=== PATIENT | male | born 1935 | race Caucasian/White ===

== ENCOUNTER → 2019-07-09 12:17 | Outpatient (BNVA) | payer MEDICARE, OTHER, SELFPAY | PROVIDERS: PCP Family Medicine; Visit Provider Family Medicine | DX: Z00.00 Encounter for general adult medical examination without abnormal findings (principal); E11.9 Type 2 diabetes mellitus without complications; Z12.5 Encounter for screening for malignant neoplasm of prostate | CPT/HCPCS: 80053; 80061; 83036; 85025; G0103 ==

== ENCOUNTER → 2019-09-17 15:21 | Outpatient (BNVA) | payer MEDICARE, OTHER, SELFPAY | PROVIDERS: PCP Family Medicine; Visit Provider Nurse Practitioner Family | DX: D69.2 Other nonthrombocytopenic purpura (principal); R21 Rash and other nonspecific skin eruption | CPT/HCPCS: 80053; 85025; 85651; 86140 ==

== ENCOUNTER → 2019-09-23 16:20 | Outpatient (BNVA) | payer MEDICARE, OTHER, SELFPAY | PROVIDERS: PCP Family Medicine; Visit Provider Family Medicine | DX: R23.3 Spontaneous ecchymoses (principal) | CPT/HCPCS: 82270 ==

== ENCOUNTER → 2019-10-21 12:51 | Outpatient (BNVA) | payer MEDICARE, OTHER, SELFPAY | PROVIDERS: PCP Family Medicine; Visit Provider Family Medicine | DX: E11.9 Type 2 diabetes mellitus without complications (principal) | CPT/HCPCS: 80053; 80061; 83036; 85025 ==

== ENCOUNTER → 2020-01-22 08:20 | Outpatient (BNVA) | payer MEDICARE, OTHER, SELFPAY | PROVIDERS: PCP Family Medicine; Visit Provider Family Medicine | DX: E11.9 Type 2 diabetes mellitus without complications (principal); I70.90 Unspecified atherosclerosis | CPT/HCPCS: 80053; 80061; 82043; 83036; 85025 ==

== ENCOUNTER → 2020-04-05 12:03 | Outpatient (BNVA) | payer MEDICARE, OTHER, SELFPAY | PROVIDERS: PCP Family Medicine; Visit Provider Family Medicine | DX: E11.9 Type 2 diabetes mellitus without complications (principal) | CPT/HCPCS: 80053; 80061; 83036; 85025 ==

== ENCOUNTER → 2020-07-08 11:46 | Outpatient (BNVA) | payer MEDICARE, OTHER, SELFPAY | PROVIDERS: PCP Family Medicine; Visit Provider Nurse Practitioner Family | DX: I10 Essential (primary) hypertension (principal); E11.65 Type 2 diabetes mellitus with hyperglycemia; Z79.4 Long term (current) use of insulin; E78.5 Hyperlipidemia, unspecified; K21.9 Gastro-esophageal reflux disease without esophagitis | CPT/HCPCS: 80053; 80061; 83036; 84443; 85025 ==

== ENCOUNTER 2020-10-03 05:30 | Inpatient (IN) | payer MEDICARE, OTHER, SELFPAY ==
[2020-10-03] VITALS (25 sets, daily range): BP systolic 90–169; BP diastolic 60–87; PULSE 87–126; RESP 16–22; TEMP 35.9–36.9; O2SAT 90–98; BMI 30.3
--- NOTE | 2020-10-03 03:22 | XRR_ITS ---
PROCEDURE INFORMATION: Exam: XR Chest Exam date and time: 10/03/2020 5:44 AM Age: 85 years old Clinical indication: Other: Syncope; Prior surgery TECHNIQUE: Imaging protocol: XR of the chest. Views: 1 view. COMPARISON: No relevant prior studies available. FINDINGS: Lungs: There is increased interstitial markings and hazy airspace opacities throughout both lungs, concerning for multifocal pneumonia. Pulmonary edema can have this appearance. No large pleural effusion or pneumothorax. Pleural spaces: See Lungs finding. Heart/Mediastinum: Mildly enlarged heart. The patient is status post CABG. Bones/joints: Median sternotomy changes seen. XR/XR chest 1V portable [id number] IMPRESSION: Nonspecific imaging findings, which can be seen with multifocal pneumonia and pulmonary edema. Clinical correlation is recommended.
--- NOTE | 2020-10-03 05:42 | ECG_ITS ---
[facility] Test Date: 2020-10-03 Pat Name: Michael Meyers Department: Room: Gender: Male [employer] Justice: : 1935 Requested By: Sam Pink Order Number: [id number] Reading MD: LUCINA GAVIRIA Measurements Intervals [place] Rate: 94 P: 92 OR: 169 QRS: 51 QRSD: 127 T: 230 QT: 399 QTc: 499 Interpretive Statements SINUS RHYTHM WITH OCCASIONAL VENTRICULAR PREMATURE COMPLEXES SEPTAL MYOCARDIAL INFARCTION , POSSIBLY old compared to ECG 10/03/2020 05:36:16 No significant Electronically Signed On 10-03-2020 22:24:10 CDT by LUCINA GAVIRIA [id number]
[2020-10-03 05:51] LABS: Basophils % 0.2 %; Eosinophils # 0.3 10^3/uL (0.0-0.8); Eosinophils % 2.6 %; Hematocrit 43.1 % (42.0-52.0); Hemoglobin 13.8 g/dL (11.7-16.6); Lymphocytes # 1.1 10^3/uL (0.8-4.8); Lymphocytes % 8.9 %; Mean Corpuscular Hemoglobin 27.3 pg (28.0-34.0); Mean Corpuscular Volume 85.3 fL (80-94); Mean Platelet Volume 9.9 fL (7.4-10.4); Monocytes # 1.1 10^3/uL (0.2-0.9); Monocytes % 9.1 %; Neutrophils # 9.64 10^3/uL (1.8-7.7); Neutrophils % 78.8 %; Nucleated Red Blood Cells % 0 %; Platelet Count 138 10^3/cmm (130-400); Red Blood Count 5.05 10^6/uL (4.1-5.3); Red Cell Distribution Width 14.6 % (12.1-15.1); White Blood Count 12.2 10^3/uL (4.0-10.0)
--- NOTE | 2020-10-03 06:02 | W.ED.SYNCOPE ---
HPI - Syncope General: Chief Complaint: Syncope Stated Complaint: syncope Time Seen by Provider: 10/03/20 06:00 History of Present Illness: HPI narrative: 85 yo male comes in due to syncope which occurred approximately 0420 this morning. He comes in with his , he is hard of hearing.He had got up to go to the bathroom and fell though he was using his walker. He fell onto carpet. He thinks he passed out. He denies fever/chills, no nausea or vomiting, no diarrhea or constipation. No pain or burning on urination though his states he has been urinating more often. No abdominal or flank pain. He has right leg weakness from a previous CVA. He denies SOB but his states he has been coughing but not coughing anything up. He was at [facility] overnight for chest pain. The discharge from that facility shows CHF. He does not wear oxygen at home. MD complaint: loss of consciousness and collapsed Onset (ago): minute(s) Prodromal symptoms: none Witnessed: Yes - by Other () Context: during exertion (Going to the bathroom using his walker.) Associated symptoms: Reports weakness (History of right leg weakness secondary to previous CVA); Deny abdominal pain, chest pain, fever(s), headache(s), lightheadedness, nausea, short of breath or vertigo History: history of CAD (CHF) Treatments prior to arrival: none Review of Systems General: Reports: 10 or more systems reviewed and unremarkable except in HPI and below Narrative: Pleasant 85-year-old male comes in after a syncopal episode. Const: Denies: fever(s), chills, body aches or change in weight Eyes: Denies: blurry vision ENMT: Denies: throat pain or nasal discharge Card: Reports: edema ( states he has been having some swelling in his legs.), swelling of feet/ankles, syncope (Current chief complaint of syncope) and orthopnea; Denies: chest pain, palpitations, irregular heart rhythm, lightheadedness, dyspnea on exertion or leg pain with exertion Resp: Reports: dyspnea and non-productive cough; Denies: wheezing, pain on inspiration, hemoptysis or chest congestion GI: Denies: abdominal pain, nausea, vomiting, diarrhea or constipation : Reports: urinary frequency; Denies: flank pain or dysuria Musc: Denies: extremity pain Neuro: Reports: weakness in extremities (Right lower extremity secondary to previous CVA); Denies: headache(s) or vertigo PFSH ED PFSH: Medical History ASVD (arteriosclerotic vascular disease) Depression Diabetes DVT (deep venous thrombosis) GERD (gastroesophageal reflux disease) History of CVA (cerebrovascular accident) Hyperlipidemia Hypertension Insomnia Surgical History Hx of CABG (~2006) Family History Other CAD (coronary artery disease) Diabetes Social History Smoking and tobacco status: never smoked Second hand smoke exposure: No Alcohol intake: never Lives independently: Yes Household members: spouse Marital status: Current occupational status: retired History of recent travel: No Current gender identity: Male Physical Exam Narrative: EXAM NARRATIVE: 85-year-old male comes in after syncope. He appears to be in no acute distress. He is hard of hearing. He is currently on O2 where he does not wear O2 at home. Const: COMMON NORMALS: no acute distress, alert and well nourished EXAM LIMITATIONS: other limitations (Hard of hearing.) GENERAL APPEARANCE: cooperative, comfortable and lethargic; not in distress NUTRITIONAL APPEARANCE: obese ORIENTATION/CONSCIOUSNESS: Yes oriented to person, Yes oriented to place and Yes lethargic HENMT: COMMON NORMALS: normocephalic HEAD & SCALP: normocephalic Eye: COMMON NORMALS: Equal, round and reactive pupils present and EOMs intact bilaterally PUPIL: Yes Equal, round and reactive pupils present Neck/C-Spine: COMMON NORMALS: full ROM, no lymphadenopathy and no JVD Chest: COMMONS NORMALS: normal inspection of the chest and normal palpation of entire chest wall Resp: COMMON NORMALS: normal respiratory effort, No retractions and No use of accessory muscles; negative for clear to auscultation bilaterally EFFORT & INSPECTION: Yes able to speak in complete sentences, Yes symmetric chest movement, No respiratory distress, No decreased respiratory effort and No labored AUSCULTATION: not clear to auscultation bilaterally, crackles (R > L) Laterality: posterior and diminished lung sounds Cardio: COMMON NORMALS: no JVD, regular rate and regular rhythm RATE: regular rate RHYTHM: regular rhythm HEART SOUNDS: no murmurs GI: COMMON NORMALS: Soft to palpation and non-tender INSPECTION: Yes central obesity AUSCULTATION: Yes Hypoactive bowel sounds present PALPATION: Yes Soft to palpation and No Tenderness to palpation present (GI) : COMMON NORMALS: Yes no CVA tenderness BLADDER/KIDNEY EXAM: Yes no CVA tenderness Back/Pelvis: COMMON NORMALS: no CVA tenderness Extremity: COMMON NORMALS: full ROM, capillary refill normal and no calf tenderness GENERAL: Yes edema (Mild lower extremity edema, left greater than right) Neuro: COMMON NORMALS: moves all extremities SENSORIUM/ORIENTATION: Yes alert, Yes oriented to person, Yes oriented to place and Yes lethargic SPEECH: speech normal GAIT: Yes Unable to assess gait MOTOR EXAM: Abnormal motor strength present (Decreased strength right lower extremity) Skin: COMMON NORMALS: no rashes or lesions noted and no wounds GENERAL SKIN EXAM: no rashes or lesions noted Course Consultations: Consultation #1: Dr. Sepulveda Consultation #2: Has accepted patient for admission Vital Signs: Vital signs: Vital Signs Temperature 96.7 F L 10/03/20 05:31 Pulse Rate 92 10/03/20 07:16 Respiratory Rate 18 10/03/20 06:53 Blood Pressure 141/87 10/03/20 06:41 Pulse Oximetry 95 10/03/20 06:53 MDM - Syncope Lab Data: Labs: Lab Results 10/03/20 10/03/20 10/03/20 Range/Units 05:40 05:40 05:40 WBC 12.2 H (4.0-10.0) 10^3/ uL RBC 5.05 (4.1-5.3) 10^6/u L Hgb 13.8 (11.7-16.6) g/dL Hct 43.1 (42.0-52.0) % MCV 85.3 (80-94) fL MCH 27.3 L (28.0-34.0) pg MCHC 32.0 (30.0-36.0) g/dL RDW 14.6 (12.1-15.1) % Plt Count 138 (130-400) 10^3/c mm MPV 9.9 (7.4-10.4) fL Neut % (Auto) 78.8 % Lymph % (Auto) 8.9 % [place] % (Auto) 9.1 % Eos % (Auto) 2.6 % Baso % (Auto) 0.2 % Neut # (Auto) 9.64 H (1.8-7.7) 10^3/u L Lymph # (Auto) 1.1 (0.8-4.8) 10^3/u L [place] # (Auto) 1.1 H (0.2-0.9) 10^3/u L Eos # (Auto) 0.3 (0.0-0.8) 10^3/u L Baso # (Auto) 0.0 (0.0-0.1) 10^3/u L Nucleated RBC % (a uto) 0 % Nucleated RBCs # 0.0 /100WBC Sodium 138 (136-145) mmol/L Potassium 3.5 (3.5-5.1) mmol/L Chloride 106 (98-107) mmol/L Carbon Dioxide 21 L (22-29) mmol/L Anion Gap 14.5 (5-19) BUN 12 (8-23) mg/dL Creatinine 0.7 (0.7-1.2) mg/dL GFR Calculation Not Reportable Glucose 73 (65-115) mg/dL Calculated Osmolal ity 284 L (285-295) mOsm/k g Lactate (0.5-2.2) mmol/L Calcium 8.0 L (8.5-10.5) mg/dL Magnesium (1.7-2.3) mg/dL Total Bilirubin 0.5 (0.15-1.2) mg/dL AST 18 (0-40) U/L ALT 13 (0-41) U/L Alkaline Phosphata se 51 (40-130) IU/L Creatine Kinase 144 (39-308) U/L Troponin T Baselin e 52 H (0-15) ng/L Troponin T 120 Min [place] (0-15) ng/L Delta Troponin T (0-10) ABS# NT-Pro-B Natriuret Pep 1375 H (0-450) pg/mL Total Protein 6.5 L (6.6-8.7) g/dL Albumin 2.8 L (3.5-5.2) g/dL Globulin 3.7 (1.3-4.6) g/dL SARS-CoV-2 Ag (Rap id) (Negative) 10/03/20 10/03/20 10/03/20 Range/Units 05:40 07:12 07:48 WBC (4.0-10.0) 10^3/ uL RBC (4.1-5.3) 10^6/u L Hgb (11.7-16.6) g/dL Hct (42.0-52.0) % MCV (80-94) fL MCH (28.0-34.0) pg MCHC (30.0-36.0) g/dL RDW (12.1-15.1) % Plt Count (130-400) 10^3/c mm MPV (7.4-10.4) fL Neut % (Auto) % Lymph % (Auto) % [place] % (Auto) % Eos % (Auto) % Baso % (Auto) % Neut # (Auto) (1.8-7.7) 10^3/u L Lymph # (Auto) (0.8-4.8) 10^3/u L [place] # (Auto) (0.2-0.9) 10^3/u L Eos # (Auto) (0.0-0.8) 10^3/u L Baso # (Auto) (0.0-0.1) 10^3/u L Nucleated RBC % (a uto) % Nucleated RBCs # /100WBC Sodium (136-145) mmol/L Potassium (3.5-5.1) mmol/L Chloride (98-107) mmol/L Carbon Dioxide (22-29) mmol/L Anion Gap (5-19) BUN (8-23) mg/dL Creatinine (0.7-1.2) mg/dL GFR Calculation Glucose (65-115) mg/dL Calculated Osmolal ity (285-295) mOsm/k g Lactate (0.5-2.2) mmol/L Calcium (8.5-10.5) mg/dL Magnesium 1.9 (1.7-2.3) mg/dL Total Bilirubin (0.15-1.2) mg/dL AST (0-40) U/L ALT (0-41) U/L Alkaline Phosphata se (40-130) IU/L Creatine Kinase (39-308) U/L Troponin T Baselin e (0-15) ng/L Troponin T 120 Min [place] 52.73 H (0-15) ng/L Delta Troponin T 0.73 (0-10) ABS# NT-Pro-B Natriuret Pep (0-450) pg/mL Total Protein (6.6-8.7) g/dL Albumin (3.5-5.2) g/dL Globulin (1.3-4.6) g/dL SARS-CoV-2 Ag (Rap id) Negative (Negative) 10/03/20 Range/Units 09:58 WBC (4.0-10.0) 10^3/ uL RBC (4.1-5.3) 10^6/u L Hgb (11.7-16.6) g/dL Hct (42.0-52.0) % MCV (80-94) fL MCH (28.0-34.0) pg MCHC (30.0-36.0) g/dL RDW (12.1-15.1) % Plt Count (130-400) 10^3/c mm MPV (7.4-10.4) fL Neut % (Auto) % Lymph % (Auto) % [place] % (Auto) % Eos % (Auto) % Baso % (Auto) % Neut # (Auto) (1.8-7.7) 10^3/u L Lymph # (Auto) (0.8-4.8) 10^3/u L [place] # (Auto) (0.2-0.9) 10^3/u L Eos # (Auto) (0.0-0.8) 10^3/u L Baso # (Auto) (0.0-0.1) 10^3/u L Nucleated RBC % (a uto) % Nucleated RBCs # /100WBC Sodium (136-145) mmol/L Potassium (3.5-5.1) mmol/L Chloride (98-107) mmol/L Carbon Dioxide (22-29) mmol/L Anion Gap (5-19) BUN (8-23) mg/dL Creatinine (0.7-1.2) mg/dL GFR Calculation Glucose (65-115) mg/dL Calculated Osmolal ity (285-295) mOsm/k g Lactate 1.0 (0.5-2.2) mmol/L Calcium (8.5-10.5) mg/dL Magnesium (1.7-2.3) mg/dL Total Bilirubin (0.15-1.2) mg/dL AST (0-40) U/L ALT (0-41) U/L Alkaline Phosphata se (40-130) IU/L Creatine Kinase (39-308) U/L Troponin T Baselin e (0-15) ng/L Troponin T 120 Min [place] (0-15) ng/L Delta Troponin T (0-10) ABS# NT-Pro-B Natriuret Pep (0-450) pg/mL Total Protein (6.6-8.7) g/dL Albumin (3.5-5.2) g/dL Globulin (1.3-4.6) g/dL SARS-CoV-2 Ag (Rap id) (Negative) Discharge Plan Discharge Prescriptions: No Action aspirin [Adult Low Dose Aspirin] 81 mg tablet,delayed release (DR/EC) 81 mg PO DAILY@0800 RF: 0 miscellaneous medical supply Misc 1 each miscellaneous QDAY Qty: 2 RF: 0 albuterol sulfate [Ventolin HFA] 90 mcg/actuation HFA aerosol inhaler 2 puff INHALATION QID Qty: 6.7 RF: 2 alcohol swabs [BD Alcohol Swabs] Pads, Medicated 1 pad TOPICAL QID MDD USE UP TO 4 PADS DAILY Qty: 200 RF: 6 (DME) pen needle, diabetic [BD Ultra-Fine Mini Pen Needle] 31 gauge x 3/16 needle See Rx Instructions .ROUTE .MEDSUPPLY Qty: 100 RF: 6 triamcinolone acetonide 0.1 % cream 1 applic TOPICAL DAILY Qty: 15 RF: 3 nitroglycerin 0.4 mg tablet, sublingual 0.4 mg sublingual Q5M Qty: 30 RF: 0 (DME) Blood Glucose Test Strip See Rx Instructions .ROUTE .MEDSUPPLY Qty: 100 RF: 2 clotrimazole-betamethasone 1-0.05 % cream See Rx Instructions .ROUTE .COMPLEX Qty: 30 RF: 1 promethazine-DM 6.25-15 mg/5 mL syrup 5 ml PO Q6H PRN (Reason: cough) Qty: 118 RF: 0 ascorbic acid (vitamin C) 1,000 mg Tablet 1,000 mg PO BID@08,1999 RF: 0 fluticasone propionate 50 mcg/actuation spray,suspension 2 spray INTRANASAL DAILY@0800 RF: 0 magnesium oxide 250 mg magnesium Tablet 250 mg PO BID@08,1999 RF: 0 atorvastatin 80 mg tablet 80 mg PO DAILY@0800 RF: 0 gabapentin 600 mg tablet 600 mg PO TID@08,, RF: 0 donepezil 5 mg tablet 5 mg PO DAILY@0800 RF: 0 trazodone 50 mg tablet 50 mg PO BEDTIME@1999 RF: 0 glipizide 10 mg tablet extended release 24hr 10 mg PO BEDTIME@1999 RF: 0 isosorbide mononitrate 30 mg tablet extended release 24 hr 30 mg PO BID@08,1999 RF: 0 clopidogrel 75 mg tablet 75 mg PO DAILY@0800 RF: 0 amlodipine 5 mg tablet 5 mg PO DAILY@0800 RF: 0 pantoprazole 20 mg tablet,delayed release (DR/EC) 20 mg PO DAILY@0800 RF: 0 tamsulosin 0.4 mg capsule 0.4 mg PO DAILY@0800 RF: 0 Lasix 20 mg tablet 20 mg PO DAILY@0800 RF: 0 metoprolol succinate 25 mg tablet extended release 24 hr 25 mg PO Q12H RF: 0 finasteride 5 mg tablet 5 mg PO DAILY@0800 RF: 0 escitalopram oxalate 10 mg tablet 10 mg PO DAILY@0800 RF: 0 Lantus Solostar U-100 Insulin 100 unit/mL (3 mL) insulin pen See Rx Instructions .ROUTE .COMPLEX RF: 0 levocetirizine 5 mg tablet 5 mg PO DAILY@0800 RF: 0 Farxiga 10 mg tablet 10 mg PO DAILY@0800 RF: 0 Coding Level of Care Code ED [employer] 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
[2020-10-03 06:06] LABS: Troponin(5th) Baseline 52 ng/L (0-15)
--- NOTE | 2020-10-03 06:12 | CTR_ITS ---
PROCEDURE INFORMATION: Exam: CT Head Without Contrast Exam date and time: 10/03/2020 6:19 AM Age: 85 years old Clinical indication: Syncope and collapse; Prior surgery; Additional info: Syncope, age 85 TECHNIQUE: Imaging protocol: Computed tomography of the head without contrast. Radiation optimization: All CT scans at this facility use at least one of these dose optimization techniques: automated exposure control; mA and/or kV adjustment per patient size (includes targeted exams where dose is matched to clinical indication); or iterative reconstruction. COMPARISON: No relevant prior studies available. RADIATION DOSE METRICS: Total DLP (mGy-cm): 839.38 FINDINGS: Brain: There is 2 patchy areas of decreased attenuation extending into the cortex in the right occipital parietal region, consistent with age-indeterminate infarct. There is a patchy area of encephalomalacia in the superomedial right frontal lobe, likely sequela of previous insult. No hemorrhage, mass effect or midline shift. There is foci of decreased attenuation in the periventricular and subcortical white matter, likely representing chronic small vessel ischemic changes. Mild cerebral volume loss is present. No intra-axial or extra-axial fluid collection seen. Cerebral ventricles: No ventriculomegaly. Bones/joints: Unremarkable. No acute fracture. Paranasal sinuses: Visualized sinuses are unremarkable. No fluid levels. Mastoid air cells: Surgical changes of the left mastoid air cells noted. The right mastoid air cells are unremarkable. Auditory system: Implanted hearing aid noted on the left. Vasculature: Extensive atherosclerotic calcification of the intracranial internal carotid arteries and vertebral arteries noted. Soft tissues: Unremarkable. CT/CT head wo con* [id number] IMPRESSION: Age-indeterminate infarcts in the right occipital parietal region, clinical correlation is recommended. Further evaluation with brain MRI should be considered in the adequate clinical setting. (Implanted hearing aid on the left). Radiation Dose CTDIVOL = (mGy): DLP = 839.38 (mGy-cm)
[2020-10-03 06:15] LABS: Alanine Aminotransferase 13 U/L (0-41); Albumin Level 2.8 g/dL (3.5-5.2); Alkaline Phosphatase 51 IU/L (40-130); Anion Gap 14.5 (5-19); Aspartate Amino Transferase 18 U/L (0-40); Blood Urea Nitrogen 12 mg/dL (8-23); Carbon Dioxide 21 mmol/L (22-29); Chloride 106 mmol/L (98-107); Creatine Phosphokinase 144 U/L (39-308); Globulin 3.7 g/dL (1.3-4.6); Glucose 73 mg/dL (65-115); NT Pro B Type Natriuretic Pept 1375 pg/mL (0-450); Osmolality Calculated 284 mOsm/kg (285-295); Potassium 3.5 mmol/L (3.5-5.1); Sodium 138 mmol/L (136-145); Total Bilirubin 0.5 mg/dL (0.15-1.2); Total Protein 6.5 g/dL (6.6-8.7)
--- NOTE | 2020-10-03 06:33 | PC.NURSE ---
patient back from CT
--- NOTE | 2020-10-03 07:04 | CTR_ITS ---
PROCEDURE INFORMATION: Exam: CTA Chest With Contrast Exam date and time: 10/03/2020 7:17 AM Age: 85 years old Clinical indication: Shortness of breath; Prior surgery; Additional info: Abnormal cxr, SOB TECHNIQUE: Imaging protocol: Computed tomographic angiography of the chest with contrast. 3D rendering (Not supervised by radiologist): MIP and/or 3D reconstructed images were created by the technologist. Radiation optimization: All CT scans at this facility use at least one of these dose optimization techniques: automated exposure control; mA and/or kV adjustment per patient size (includes targeted exams where dose is matched to clinical indication); or iterative reconstruction. Contrast material: OMNI 350; Contrast volume: 85 ml; Contrast route: INTRAVENOUS (IV); COMPARISON: CR (CHEST, ) 10/03/2020 6:06 AM RADIATION DOSE METRICS: Total DLP (mGy-cm): 581.08 FINDINGS: Pulmonary arteries: There is a linear filling defect within segmental/subsegmental pulmonary artery branches of the right middle lobe. Aorta: Mild diffuse atherosclerotic disease is present. No aneurysm. Lungs: There is a mass with lobulated borders in the lingula, measuring 4.2 x 3.0 x 3.4 cm. There is bilateral paraseptal thickening with scattered hazy areas of ground-glass opacification and small left pleural effusion, which in the setting of cardiomegaly is suggestive of pulmonary edema. Lepidic spread of disease can have this appearance. Pneumonia should be excluded clinically. There is bilateral subpleural reticular opacities, likely corresponding to a background of pulmonary fibrosis. Tiny calcified granulomas are seen bilaterally. Pleural spaces: See Lungs finding. Heart: The patient is status post CABG. Mildly enlarged heart. Coronary atherosclerotic calcifications seen. No pericardial effusion. Mediastinal space: A large hiatal hernia is present. Lymph nodes: There is enlarged mediastinal and bilateral hilar lymph nodes, the largest measuring 2.0 cm in transverse dimension in the right paratracheal region. Liver: Tiny calcified granuloma noted in the right hepatic lobe. The liver is otherwise unremarkable. Bones/joints: Degenerative changes of the spine seen. Median sternotomy changes seen. Soft tissues: Unremarkable. CT/CT angio chest PE protcl [id number] IMPRESSION: 1. Small pulmonary embolus in the right middle lobe. 2. Lingular mass in association with mediastinal and bilateral hilar lymphadenopathy. 3. Imaging findings of pulmonary edema with small left pleural effusion. Lepidic spread of disease can have this appearance. Pneumonia should be excluded clinically. THIS REPORT CONTAINS FINDINGS THAT MAY BE CRITICAL TO PATIENT CARE. The findings were verbally communicated via telephone conference with ADRIANA GAVIRIA at 8:08 AM CDT on 10/03/2020. The findings were acknowledged and understood. Radiation Dose CTDIVOL = (mGy): DLP = 581.08 (mGy-cm)
[2020-10-03 07:12] LABS: Magnesium 1.9 mg/dL (1.7-2.3)
[2020-10-03 07:40] LABS: SARS Covid-2 Antigen Negative (Negative)
[2020-10-03] MEDS: iohexol 350 mg/mL 100 mL Btl IV (07:40)
--- NOTE | 2020-10-03 07:42 | ECG_ITS ---
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: : 1935 Requested By: Sam Pink Order Number: [id number] Mónica MD: LUCINA GAVIRIA Measurements Intervals [place] Rate: 92 P: 17 WV: 145 QRS: 40 QRSD: 123 T: 207 QT: 400 QTc: 496 Interpretive Statements SINUS RHYTHM POSSIBLE LEFT ATRIAL ENLARGEMENT [-0.1mV P WAVE IN V1/V2] LEFT VENTRICULAR HYPERTROPHY AND ST-T CHANGE [VOLTAGE CRITERIA PLUS ST/T ABNORMALITY] No previous ECG available for comparison Electronically Signed On 10-03-2020 22:26:50 CDT by LUCINA GAVIRIA [email or web address], Incchoctaw health centerWistron [employer] ([employer] Corporationault[facility].V I O/store/Om/[id number]
[2020-10-03 08:20] LABS: Troponin 5 2HR 52.73 ng/L (0-15); Troponin 5 2HR Delta 0.73 ABS# (0-10)
[2020-10-03 11:07] LABS: INR 1.06 (0.8-1.2); Partial Thromboplastin Time 32.4 SECONDS (23.9-36.7)
[2020-10-03] MEDS: heparin drip 25,000 UNIT/500 ML PREMIX 23.9 UNIT IV (11:31)
--- NOTE | 2020-10-03 11:42 | ECG_ITS ---
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 Measurements Intervals [place] Rate: 107 P: 63 NV: 132 QRS: 56 QRSD: 128 T: 237 QT: 377 QTc: 504 Interpretive Statements SINUS TACHYCARDIA LEFT VENTRICULAR HYPERTROPHY AND ST-T CHANGE [VOLTAGE CRITERIA PLUS ST/T ABNORMALITY] Compared to ECG 10/03/2020 07:59:37 Left ventricular hypertrophy now present ST (T wave) deviation now present Sinus rhythm no longer present Ventricular premature complex(es) no longer present Myocardial infarct finding no longer present Electronically Signed On 10-10-2020 12:27:55 CDT by Eveline Paige M.D. [id number]
[2020-10-03 12:03] LABS: Platelet Count 128 10^3/cmm (130-400)
[2020-10-03 12:25] LABS: Troponin 5 6HR 60.87 ng/L (0-15); Troponin 5 6HR Delta 8.87 ng/L (0-12)
[2020-10-03 12:37] LABS: Add Urine Microscopic? NO; Charge for UA Resulting for Rev
[2020-10-03 12:51] LABS: Bilirubin Urine Neg (Negative); Blood Urine Neg (Negative); Glucose Urine UA 4+ (Normal); Ketones Urine Negative (Negative); Leukocyte Esterase Urine Negative (Negative); Nitrate Urine Negative (Negative); Protein Urine Neg (Negative); Specific Gravity, Urine 1.015 (1.005-1.030); Urine Appearance Clear (CLEAR); Urine Color Yellow (Yellow); Urobilinogen Urine Norm (Negative); pH Urine 5 (5-7)
[2020-10-03 12:56] LABS: Glucose Point of Care 68 mg/dL (70-110)
[2020-10-03] MEDS: dextrose 50% syringe 50 mL 25 ML IVP (13:04)
[2020-10-03 13:30] LABS: Glucose Point of Care 159 mg/dL (70-110)
[2020-10-03] MEDS: albuterol 8 gm MDI 2 PUFF INHALATION (14:15)
[2020-10-03] MEDS: morphine 4 mg/mL SDV 1 mL 2 MG IVP (14:20)
[2020-10-03] MEDS: FUROsemide 10 mg/mL SDV 4mL 40 MG IVP (15:04)
[2020-10-03] MEDS: metoprolol succinate ER (24 HR) 25 mg Tablet PO (15:08)
--- NOTE | 2020-10-03 16:19 | PM.HP ---
Providers/Chief Complaint Admitting Physician: Kyara Sepulveda MD Primary Care Provider: Haley Marmolejo MD Chief Complaint: syncope History of Present Illness Michael Meyers is a 85 year old male with a past medical history as outlined below, recently admitted at [facility] where he went with chest pain, was diagnosed with acute on chronic heart failure, atypical chest pain, Imdur was added to his existing medication regimen and he was discharged. I am uncertain if he underwent angiogram or any other investigations at that time, records have been requested. Since discharge home approximately 1 week ago patient continued to have chest pain with no significant relief. He has also been complaining of increasing shortness of breath, becoming increasingly weaker at home has sustained 2 falls. At 4:20 AM this morning, he was attempting to walk to the bathroom with his walker when he passed out as described by his . She found him slumped over in the bathroom. He was brought into the ER. Diagnostics here revealed CTA of the chest with PE, lingular mass and bilateral hilar and mediastinal lymphadenopathy concerning for maligancy. CXR showed possibility of multifocal pneumonia vs pulmonary edema. He was hypoglycemic upon admission, blood sugar in the 60s, has had poor p.o. intake over the last few days. Patient is unable to participate in p.o. right now as he is in discomfort because of pain. Per he has not had any fever cough or palpitations. No complaints of nausea vomiting or diarrhea. 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 Review of Systems General: Reports: ROS unobtainable due to medical condition Medications/Allergies Home Medications Medication Instructions Recorded Confirmed Last Taken Type aspirin 81 mg tablet,delayed 81 mg PO DAILY@0800 07/09/19 10/03/20 10/02/20 History release miscellaneous medical supply 1 each MISCELLANEOUS QDAY #2 each 10/01/19 10/03/20 Unknown Rx blood sugar diagnostic #100 each 02/05/20 10/03/20 Unknown Rx clotrimazole-betamethasone 1 See Rx Instructions .ROUTE 03/03/20 10/03/20 Unknown Rx %-0.05 % topical cream .COMPLEX #30 gm albuterol sulfate 90 mcg/actuation 2 puff INHALATION QID #6.7 gm 07/29/20 10/03/2010/02/21 Rx aerosol inhaler alcohol swabs 1 pad TOPICAL QID #200 each MDD 07/29/20 10/03/20 Unknown Rx USE UP TO 4 PADS DAILY pen needle, diabetic 31 gauge x #100 each 07/29/20 10/03/20 Unknown Rx 08/17 triamcinolone acetonide 0.1 % 1 applic TOPICAL DAILY #15 gm 07/29/20 10/03/20 Unknown Rx topical cream nitroglycerin 0.4 mg sublingual 0.4 mg SUBLINGUAL Q5M #30 tab 09/28/20 10/03/20 Unknown Rx tablet promethazine-DM 6.25 mg-15 mg/5 mL 5 ml PO Q6H PRN #118 ml 09/29/20 10/03/20 10/02/20 Rx oral syrup Farxiga 10 mg PO DAILY@79910/03/20 10/03/20 10/02/20 History Lasix 20 mg PO DAILY@79910/03/20 10/03/20 10/02/20 History amlodipine 5 mg PO DAILY@79910/03/20 10/03/20 10/02/20 History ascorbic acid (vitamin C) 1,000 mg PO BID@799,199910/03/20 10/03/20 10/02/20 History atorvastatin 80 mg PO DAILY@79910/03/20 10/03/20 10/02/20 History clopidogrel 75 mg PO DAILY@79910/03/20 10/03/20 10/02/20 History donepezil 5 mg PO DAILY@79910/03/20 10/03/20 10/02/20 History escitalopram oxalate 10 mg PO DAILY@79910/03/20 10/03/20 10/02/20 History finasteride 5 mg PO DAILY@79910/03/20 10/03/20 10/02/20 History fluticasone propionate 2 spray INTRANASAL DAILY@79910/03/20 10/03/20 Unknown History gabapentin 600 mg PO TID@08,,10/03/20 10/03/20 10/02/20 History glipizide 10 mg PO BEDTIME@199910/03/20 10/03/20 10/02/20 History insulin glargine [Lantus Solostar See Rx Instructions .ROUTE .COMPLEX 10/03/20 10/03/20 10/02/20 History U-100 Insulin] isosorbide mononitrate 30 mg PO BID@0800,199910/03/20 10/03/20 10/02/20 History levocetirizine 5 mg PO DAILY@0800 10/03/20 10/03/20 10/02/20 History magnesium oxide 250 mg PO BID@0800,199910/03/20 10/03/20 10/02/20 History metoprolol succinate 25 mg PO Q12H 10/03/20 10/03/20 10/02/20 History pantoprazole 20 mg PO DAILY@0800 10/03/20 10/03/20 10/02/20 History tamsulosin 0.4 mg PO DAILY@0800 10/03/20 10/03/20 10/02/20 History trazodone 50 mg PO BEDTIME@199910/03/20 10/03/20 10/02/20 History Allergies Allergy/AdvReac Type Severity Reaction Status Date / Time lisinopril Allergy angioedema Verified 09/28/20 10:03 metformin Allergy diarrhea Verified 09/28/20 10:03 PFSH Acute PFSH: Medical History ASVD (arteriosclerotic vascular disease) Depression Diabetes DVT (deep venous thrombosis) GERD (gastroesophageal reflux disease) History of CVA (cerebrovascular accident) Hyperlipidemia Hypertension Insomnia Surgical History Hx of CABG (~2006) Family History Other CAD (coronary artery disease) Diabetes Social History Smoking and tobacco status: never smoked Second hand smoke exposure: No Alcohol intake: never Lives independently: Yes Household members: spouse Marital status: Current occupational status: retired History of recent travel: No Current gender identity: Male Vitals/I&O/Wt Last Vital Signs Temp 98.3 F 10/03/20 15:52 Pulse 100 10/03/20 15:52 Resp 18 10/03/20 15:52 BP 138/77 10/03/20 15:52 Pulse Ox 94 10/03/20 15:52 10/03/20 10/03/20 10/03/20 06:59 14:59 22:59 Output Total 1849 / 1849 Balance -1849 / -1849 Weight last 48 hrs Weight 85.275 kg Physical Exam Narrative: EXAM NARRATIVE: GENERAL: Awake, alert, oriented, in moderate distress secondary to pain distress. [] HEENT: Normocephalic, atraumatic, PERRLA. On supplemental O2 at 3 L/min via nasal cannula [] CHEST: Clear to auscultation bilaterally. [] CVS: S1, S2 normal. No murmur, rubs, gallops. Peripheral pulses palpable. [] ABDOMEN: Soft, nontender. Nondistended. Bowel sounds heard. [] NEUROVASCULAR: Awake, alert, Restless, in discomfort therefore unable to assess a complete neuro exam, grossly moves all 4 extremities while laying in bed, no facial asymmetry. EXTREMITIES: Bilateral lower extremity pitting edema [] Urinary Catheter Management^: Bowman: Cath Placed During This Visit: yes Urinary Catheter Date of Insertion: 10/03/20 Urinary Catheter Time of Insertion: 12:29 Data : 10/03/20 11:46 10/03/20 05:40 Attestation for Other Data: I personally reviewed and interpreted the following: Other data: Laboratory Results WBC 12.2 10^3/uL (4.0-10.0) H 10/03/20 05:40 RBC 5.05 10^6/uL (4.1-5.3) 10/03/20 05:40 Hgb 13.8 g/dL (11.7-16.6) 10/03/20 05:40 Hct 43.1 % (42.0-52.0) 10/03/20 05:40 MCV 85.3 fL (80-94) 10/03/20 05:40 MCH 27.3 pg (28.0-34.0) L 10/03/20 05:40 MCHC 32.0 g/dL (30.0-36.0) 10/03/20 05:40 RDW 14.6 % (12.1-15.1) 10/03/20 05:40 Plt Count 128 10^3/cmm (130-400) L 10/03/20 11:46 MPV 9.9 fL (7.4-10.4) 10/03/20 05:40 Neut % (Auto) 78.8 % 10/03/20 05:40 Lymph % (Auto) 8.9 % 10/03/20 05:40 [place] % (Auto) 9.1 % 10/03/20 05:40 Eos % (Auto) 2.6 % 10/03/20 05:40 Baso % (Auto) 0.2 % 10/03/20 05:40 Neut # (Auto) 9.64 10^3/uL (1.8-7.7) H 10/03/20 05:40 Lymph # (Auto) 1.1 10^3/uL (0.8-4.8) 10/03/20 05:40 [place] # (Auto) 1.1 10^3/uL (0.2-0.9) H 10/03/20 05:40 Eos # (Auto) 0.3 10^3/uL (0.0-0.8) 10/03/20 05:40 Baso # (Auto) 0.0 10^3/uL (0.0-0.1) 10/03/20 05:40 Nucleated RBC % (auto) 0 % 10/03/20 05:40 Nucleated RBCs # 0.0 /100WBC 10/03/20 05:40 PT 14.10 SECONDS (12.1-14.9) 10/03/20 05:46 INR 1.06 (0.8-1.2) 10/03/20 05:46 APTT 32.4 SECONDS (23.9-36.7) 10/03/20 05:46 Sodium 138 mmol/L (136-145) 10/03/20 05:40 Potassium 3.5 mmol/L (3.5-5.1) 10/03/20 05:40 Chloride 106 mmol/L (98-107) 10/03/20 05:40 Carbon Dioxide 21 mmol/L (22-29) L 10/03/20 05:40 Anion Gap 14.5 (5-19) 10/03/20 05:40 BUN 12 mg/dL (8-23) 10/03/20 05:40 Creatinine 0.7 mg/dL (0.7-1.2) 10/03/20 05:40 GFR Calculation Not Reportable 10/03/20 05:40 Glucose 73 mg/dL (65-115) 10/03/20 05:40 POC Glucose 159 mg/dL (70-110) H 10/03/20 13:24 Calculated Osmolality 284 mOsm/kg (285-295) L 10/03/20 05:40 Lactate 1.0 mmol/L (0.5-2.2) 10/03/20 09:58 Calcium 8.0 mg/dL (8.5-10.5) L 10/03/20 05:40 Magnesium 1.9 mg/dL (1.7-2.3) 10/03/20 05:40 Total Bilirubin 0.5 mg/dL (0.15-1.2) 10/03/20 05:40 AST 18 U/L (0-40) 10/03/20 05:40 ALT 13 U/L (0-41) 10/03/20 05:40 Alkaline Phosphatase 51 IU/L (40-130) 10/03/20 05:40 Creatine Kinase 144 U/L (39-308) 10/03/20 05:40 Troponin T Baseline 52 ng/L (0-15) H 10/03/20 05:40 Troponin T 120 Minute 52.73 ng/L (0-15) H 10/03/20 07:48 Delta Troponin T 0.73 ABS# (0-10) 10/03/20 07:48 Troponin T Hi Sens 6Hr 60.87 ng/L (0-15) H 10/03/20 11:46 Troponin T Hi Sens 6Hr Delta 8.87 ng/L (0-12) 10/03/20 11:46 NT-Pro-B Natriuret Pep 1375 pg/mL (0-450) H 10/03/20 05:40 Total Protein 6.5 g/dL (6.6-8.7) L 10/03/20 05:40 Albumin 2.8 g/dL (3.5-5.2) L 10/03/20 05:40 Globulin 3.7 g/dL (1.3-4.6) 10/03/20 05:40 Urine Color Yellow (Yellow) 10/03/20 12:27 Urine Appearance Clear (CLEAR) 10/03/20 12:27 Urine pH 5 (5-7) 10/03/20 12:27 Ur Specific [place] 1.015 (1.005-1.030) 10/03/20 12:27 Urine Protein Neg (Negative) 10/03/20 12:27 Urine Glucose (UA) 4+ (Normal) H 10/03/20 12:27 Urine Ketones Negative (Negative) 10/03/20 12:27 Urine Blood Neg (Negative) 10/03/20 12:27 Urine Nitrate Negative (Negative) 10/03/20 12:27 Urine Bilirubin Neg (Negative) 10/03/20 12:27 Urine Urobilinogen Norm mg/dL (Negative) 10/03/20 12:27 Ur Leukocyte Esterase Negative (Negative) 10/03/20 12:27 SARS-CoV-2 Ag (Rapid) Negative (Negative) 10/03/20 07:12 Impressions Chest X-Ray 10/03/20 03:22 IMPRESSION: Nonspecific imaging findings, which can be seen with multifocal pneumonia and pulmonary edema. Clinical correlation is recommended. Head CT 10/03/20 06:12 IMPRESSION: Age-indeterminate infarcts in the right occipital parietal region, clinical correlation is recommended. Further evaluation with brain MRI should be considered in the adequate clinical setting. (Implanted hearing aid on the left). Radiation Dose CTDIVOL = (mGy): DLP = 839.38 (mGy-cm) Chest CTA 10/03/20 07:04 IMPRESSION: 1. Small pulmonary embolus in the right middle lobe. 2. Lingular mass in association with mediastinal and bilateral hilar lymphadenopathy. 3. Imaging findings of pulmonary edema with small left pleural effusion. Lepidic spread of disease can have this appearance. Pneumonia should be excluded clinically. THIS REPORT CONTAINS FINDINGS THAT MAY BE CRITICAL TO PATIENT CARE. The findings were verbally communicated via telephone conference with ADRIANA GAVIRIA at 8:08 AM CDT on 10/03/2020. The findings were acknowledged and understood. Radiation Dose CTDIVOL = (mGy): DLP = 581.08 (mGy-cm) A&P Assessment and plan (1) Pulmonary embolism: Right-sided PE Started on weight-based heparin infusion in the ER, continue same for now. CTA of the chest also mentions a lingular mass with hilar and mediastinal lymphadenopathy concerning for malignancy. Pulmonary consult in a.m. Check lower extremity venous Doppler to evaluate for DVT Check procalcitonin, lower suspicion for pneumonia, however slightly elevated white blood cell count and consolidative mass on CT will need to exclude. Continue supplemental oxygen to keep O2 sat greater than 92% DuoNeb every 4 hours as needed Status: Acute Qualifiers: Pulmonary embolism type: single subsegmental (without acute cor pulmonale) Qualified Code(s): I26.93 - Single subsegmental pulmonary embolism without acute cor pulmonale (2) Lung mass: Obtain records from recent admission at [facility], serial chest x-rays and CT. If this is truly a mass/malignancy, would expect it to be present on imaging 1 week ago Status: Acute (3) Hypoxia: Multifactorial related to pulmonary embolism, lung mass, pulmonary edema likely as a result of known history of CHF, unknown last ejection fraction. We will repeat echocardiogram at [facility] if not available from recent admission at [facility]. 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 insulin use: with alf use Diabetes mellitus complication status: with hyperglycemia Qualified Code(s): E11.65 - Type 2 diabetes mellitus with hyperglycemia; Z79.4 - computer terminal operator (current) use of insulin (5) Hypertension: Status: Acute Qualifiers: Hypertension type: essential hypertension Qualified Code(s): I10 - Essential (primary) hypertension (6) Dementia: Status: Acute Qualifiers: Dementia type: vascular dementia Dementia behavioral disturbance: without behavioral disturbance Qualified Code(s): F01.50 - Vascular dementia without behavioral disturbance Additional A&P Information DVT ppx: on heparin infusion DNR/DNI Attestations Medical Necessity Statement*: >2 midnight admission needed for treatment of pulmonary embolism , hypoxia, iv diuresis , evaluation of lung mass Coding Level of Care Code Acute 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
[2020-10-03] MEDS: ipratropium-albuterol 3 mL Neb INHALATION ×3 (16:41→23:29)
[2020-10-03 17:10] LABS: Glucose Point of Care 142 mg/dL (70-110)
[2020-10-03 17:59] LABS: Partial Thromboplastin Time 50.5 SECONDS (23.9-36.7)
--- NOTE | 2020-10-03 18:02 | PC.NURSE ---
Lasix order was to start 12 hours after the one time dose given this afternoon.
[2020-10-03] MEDS: heparin 5,000 unit/mL INJ 1 mL IV (18:13)
[2020-10-03] MEDS: isosorbide mononitrate ER 30 mg Tablet PO (19:30)
[2020-10-03] MEDS: trazodone 50 mg Tablet PO (19:30)
[2020-10-03] MEDS: gabapentin 300 mg Capsule 600 MG PO (19:30)
[2020-10-03] MEDS: HYDROcodone-acetaminophen 5-325 mg Tablet 1 TAB PO (19:53)
--- NOTE | 2020-10-03 20:13 | ECG_ITS ---
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 Measurements Intervals [place] Rate: 124 P: MD: QRS: 29 QRSD: 120 T: 213 QT: 340 QTc: 489 Interpretive Statements ATRIAL FIBRILLATION WITH RAPID VENTRICULAR RESPONSE POSSIBLE LEFT VENTRICULAR HYPERTROPHY ST DEVIATION AND MODERATE T-WAVE ABNORMALITY, CONSIDER LATERAL ISCHEMIA Compared to ECG 10/03/2020 14:26:55 T-wave abnormality now present Possible ischemia now present Sinus tachycardia no longer present ST (T wave) deviation no longer present Electronically Signed On 10-12-2020 17:47:46 CDT by Eveline Paige M.D. [email or web address]
[2020-10-03 21:06] LABS: Glucose Point of Care 216 mg/dL (70-110)
[2020-10-04] VITALS (18 sets, daily range): BP systolic 104–131; BP diastolic 54–78; PULSE 78–108; RESP 16–24; TEMP 36.4–37.1; O2SAT 93–98
[2020-10-04 00:48] LABS: Partial Thromboplastin Time 72.2 SECONDS (23.9-36.7)
[2020-10-04] MEDS: ipratropium-albuterol 3 mL Neb INHALATION ×5 (03:40→23:29)
[2020-10-04] MEDS: FUROsemide 10 mg/mL SDV 4mL 40 MG IVP ×2 (04:15→17:57)
[2020-10-04 06:00] LABS: Basophils # 0.1 10^3/uL (0.0-0.1); Basophils % 0.4 %; Eosinophils # 0.2 10^3/uL (0.0-0.8); Eosinophils % 1.6 %; Hematocrit 43.9 % (42.0-52.0); Hemoglobin 13.8 g/dL (11.7-16.6); Lymphocytes # 1.6 10^3/uL (0.8-4.8); Lymphocytes % 12.3 %; Mean Corpuscular HGB Conc 31.4 g/dL (30.0-36.0); Mean Corpuscular Hemoglobin 26.7 pg (28.0-34.0); Mean Corpuscular Volume 84.9 fL (80-94); Mean Platelet Volume 9.8 fL (7.4-10.4); Monocytes # 1.5 10^3/uL (0.2-0.9); Monocytes % 11.5 %; Neutrophils # 9.47 10^3/uL (1.8-7.7); Neutrophils % 73.9 %; Nucleated Red Blood Cells % 0 %; Platelet Count 155 10^3/cmm (130-400); Red Blood Count 5.17 10^6/uL (4.1-5.3); Red Cell Distribution Width 14.6 % (12.1-15.1); White Blood Count 12.8 10^3/uL (4.0-10.0)
--- NOTE | 2020-10-04 06:00 | USCV_ITS ---
MeyersMichael lyons Age: 85 Gender: M : 1935 Exam Date: 10/04/2020 06:06 Ordering Phys: Kyara Sepulveda MD Technologist: NOEMI [place] [facility] [place]: [place] HISTORY: PE PROCEDURES: The venous duplex Doppler examination of both lower extremities was performed in the standard fashion.the following venous structures were evaluated: common femoral vein, profunda vein, proximal portion of the greater saphenous vein, superficial femoral vein, and the popliteal vein. Serial compression, augmentation maneuvers, and spectral Doppler flow evaluation were performed. In addition, the posterior tibial and peroneal trunk were evaluated. FINDINGS: No DVT seen in any vessel examined CONCLUSIONS No evidence of right lower extremity DVT. No evidence of left lower extremity DVT. Ed Colmenares MD (Electronically Signed) Final Date: 04 Oct 2020 13:07 S
[2020-10-04 06:26] LABS: Procalcitonin 0.26 ng/mL (0-0.5)
[2020-10-04 06:37] LABS: Alanine Aminotransferase 15 U/L (0-41); Albumin Level 2.8 g/dL (3.5-5.2); Alkaline Phosphatase 53 IU/L (40-130); Aspartate Amino Transferase 21 U/L (0-40); Blood Urea Nitrogen 14 mg/dL (8-23); Calcium 8.2 mg/dL (8.5-10.5); Carbon Dioxide 28 mmol/L (22-29); Chloride 99 mmol/L (98-107); Creatinine Clr Calc Pharmacy 62.5593; Globulin 3.5 g/dL (1.3-4.6); Glucose 148 mg/dL (65-115); Osmolality Calculated 289 mOsm/kg (285-295); Sodium 138 mmol/L (136-145); Total Bilirubin 0.7 mg/dL (0.15-1.2); Total Protein 6.3 g/dL (6.6-8.7)
[2020-10-04 06:40] LABS: Anion Gap 14.6 (5-19); Potassium 3.6 mmol/L (3.5-5.1)
[2020-10-04 06:49] LABS: Partial Thromboplastin Time 74.1 SECONDS (23.9-36.7)
[2020-10-04 07:06] LABS: Glucose Point of Care 161 mg/dL (70-110)
[2020-10-04] MEDS: heparin drip 25,000 UNIT/500 ML PREMIX 25 UNIT IV (08:23)
[2020-10-04] MEDS: isosorbide mononitrate ER 30 mg Tablet PO ×2 (08:54→21:42)
[2020-10-04] MEDS: aspirin 81 mg EC Tablet PO (08:54)
[2020-10-04] MEDS: escitalopram 10 mg Tablet PO (08:55)
[2020-10-04] MEDS: finasteride 5 mg Tablet PO (08:55)
[2020-10-04] MEDS: amlodipine 5 mg Tablet PO (08:55)
[2020-10-04] MEDS: gabapentin 300 mg Capsule 600 MG PO ×3 (08:55→21:41)
[2020-10-04] MEDS: atorvastatin 40 mg Tablet 80 MG PO (08:55)
[2020-10-04] MEDS: tamsulosin 0.4 mg Capsule PO (08:55)
[2020-10-04] MEDS: pantoprazole DR 40 mg Tablet PO (08:55)
--- NOTE | 2020-10-04 10:17 | PC.NURSE ---
notified Dr Sepulveda that patient has order for Lotrisone and patient's said he doesn't use it at home and she don't want him to use it here.
[2020-10-04 11:24] LABS: Glucose Point of Care 263 mg/dL (70-110)
[2020-10-04] MEDS: metoprolol succinate ER (24 HR) 25 mg Tablet PO (12:08)
--- NOTE | 2020-10-04 12:24 | PC.NURSE ---
called lab and sanjeev said ptt has not been drawn yet but someone will be up shortly.
[2020-10-04] MEDS: piperacillin-tazobactam 3.375 GM in sodium chloride 0.9% (plus) 50 ML IV ×2 (12:46→17:56)
--- NOTE | 2020-10-04 13:44 | PC.NURSE ---
called lab because JAK says pending. Mally said it is running now.
[2020-10-04 13:51] LABS: Partial Thromboplastin Time 53.2 SECONDS (23.9-36.7)
--- NOTE | 2020-10-04 14:12 | PM.CONSULT ---
Providers/Reason For Consult Consulting Physican/Specialty*: Pulmonary critical care medicine Reason for Consult*: Concern for lung malignancy Attending Physician: Kyara Sepulveda MD Primary Care Provider: Haley Marmolejo MD History of Present Illness History of Present Illness Michael Meyers is a 85 year old male who presented to the hospital with worsening chest pain and shortness of breath yesterday. His past medical history is significant for type 2 diabetes, hypertension, hyperlipidemia, coronary artery disease status post CABG in 2006. The patient was recently evaluated at [place] for chest pain. According to the medical record, no significant cardiac abnormalities were identified. The extent of cardiac work-up is unknown to me. 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 The patient had a CT angiogram of the chest which revealed a small pulmonary embolus in the right middle lobe. The patient has bilateral groundglass opacities with interlobular septal thickening with a left-sided pleural effusion. This is likely secondary to pulmonary edema. The patient was also found to have a 4.2 x 3 x 3.4 cm lobulated lesion in the lingula. The patient was also found to have bilateral hilar and mediastinal lymphadenopathy. I was asked to evaluate this patient for concerns of malignancy. The patient has significant hiatal hernia. The patient was seen and examined. He has significant dementia and was unable to provide any history. The patient also has severe hearing impairment. A bedside ultrasound revealed bilateral B-lines on lung ultrasound. Very small amount of left-sided pleural effusion was noted. The patient had been diuresed well since he was admitted to the hospital. His venous duplex did not reveal any DVT in bilateral lower extremities. An echocardiogram revealed an ejection fraction of 55 to 60%. Grade 2 diastolic dysfunction. Mild mitral regurgitation. Patient has a very remote history of smoking. His and son are present at bedside. Review of Systems Narrative: Unable to assess Meds/Allergies Home Medications and Allergies Home Medications Medication Instructions Recorded Confirmed Last Taken Type aspirin 81 mg tablet,delayed 81 mg PO DAILY@0800 07/09/19 10/03/20 10/02/20 History release miscellaneous medical supply 1 each MISCELLANEOUS QDAY #2 each 10/01/19 10/03/20 Unknown Rx blood sugar diagnostic #100 each 02/05/20 10/03/20 Unknown Rx clotrimazole-betamethasone 1 See Rx Instructions .ROUTE 03/03/20 10/03/20 Unknown Rx %-0.05 % topical cream .COMPLEX #30 gm albuterol sulfate 90 mcg/actuation 2 puff INHALATION QID #6.7 gm 07/29/20 10/03/20 10/02/20 Rx aerosol inhaler alcohol swabs 1 pad TOPICAL QID #200 each MDD 07/29/20 10/03/20 Unknown Rx USE UP TO 4 PADS DAILY pen needle, diabetic 31 gauge x #100 each 07/29/20 10/03/20 Unknown Rx 08/17 triamcinolone acetonide 0.1 % 1 applic TOPICAL DAILY #15 gm 07/29/20 10/03/20 Unknown Rx topical cream nitroglycerin 0.4 mg sublingual 0.4 mg SUBLINGUAL Q5M #30 tab 09/28/20 10/03/20 Unknown Rx tablet promethazine-DM 6.25 mg-15 mg/5 mL 5 ml PO Q6H PRN #118 ml 09/29/20 10/03/20 10/02/20 Rx oral syrup Farxiga 10 mg PO DAILY@0800 10/03/20 10/03/20 10/02/20 History Lasix 20 mg PO DAILY@0810/03/20 10/03/20 10/02/20 History amlodipine 5 mg PO DAILY@0810/03/20 10/03/20 10/02/20 History ascorbic acid (vitamin C) 1,000 mg PO BID@0800,199910/03/20 10/03/20 10/02/20 History atorvastatin 80 mg PO DAILY@0810/03/20 10/03/20 10/02/20 History clopidogrel 75 mg PO DAILY@0810/03/20 10/03/20 10/02/20 History donepezil 5 mg PO DAILY@0810/03/20 10/03/20 10/02/20 History escitalopram oxalate 10 mg PO DAILY@0810/03/20 10/03/20 10/02/20 History finasteride 5 mg PO DAILY@0800 10/03/20 10/03/20 10/02/20 History fluticasone propionate 2 spray INTRANASAL DAILY@0810/03/20 10/03/20 Unknown History gabapentin 600 mg PO TID@08,,10/03/20 10/03/20 10/02/20 History glipizide 10 mg PO BEDTIME@199910/03/20 10/03/20 10/02/20 History insulin glargine [Lantus Solostar See Rx Instructions .ROUTE .COMPLEX 10/03/20 10/03/20 10/02/20 History U-100 Insulin] isosorbide mononitrate 30 mg PO BID@0800,199910/03/20 10/03/20 10/02/20 History levocetirizine 5 mg PO DAILY@79910/03/20 10/03/20 10/02/20 History magnesium oxide 250 mg PO BID@0800,199910/03/20 10/03/20 10/02/20 History metoprolol succinate 25 mg PO Q12H 10/03/20 10/03/20 10/02/20 History pantoprazole 20 mg PO DAILY@0810/03/20 10/03/20 10/02/20 History tamsulosin 0.4 mg PO DAILY@79910/03/20 10/03/20 10/02/20 History trazodone 50 mg PO BEDTIME@199910/03/20 10/03/20 10/02/20 History Allergies Allergy/AdvReac Type Severity Reaction Status Date / Time lisinopril Allergy angioedema Verified 09/28/20 10:03 metformin Allergy diarrhea Verified 09/28/20 10:03 Current Medications Current Medications Generic Name Dose Route Start Last Admin Trade Name Freq PRN Reason Stop Dose Admin Hydrocodone Bitart/Acetaminophen 1 tab 10/03/20 16:10 10/03/20 19:53 Hydrocodone-Acetaminophen 5-325 Mg Tablet PO 1 tab Q4H PRN Administration MODERATE TO SEVERE PAIN Albuterol/Ipratropium 3 ml 10/03/20 16:30 10/04/20 08:21 Ipratropium-Albuterol 3 Ml Neb INHALATION 3 ml Q4H AMELIA Administration Amlodipine Besylate 5 mg 10/04/20 08:00 10/04/20 08:55 Amlodipine 5 Mg Tablet PO 5 mg DAILY@0800 AMELIA Administration Aspirin 81 mg 10/04/20 08:00 10/04/20 08:54 Aspirin 81 Mg Ec Tablet PO 81 mg DAILY@0800 AMELIA Administration Atorvastatin Calcium 80 mg 10/04/20 08:00 10/04/20 08:55 Atorvastatin 40 Mg Tablet PO 80 mg DAILY@0800 [facility] Administration Betamethasone/Clotrimazole 1 applic 10/03/20 18:00 10/04/20 10:17 Clotrimazole-Betamethasone Cream 15gm TOPICAL Not Given BID [facility] Escitalopram Oxalate 10 mg 10/04/20 08:00 10/04/20 08:55 Escitalopram 10 Mg Tablet PO 10 mg DAILY@0800 AMELIA Administration Finasteride 5 mg 10/04/20 08:00 10/04/20 08:55 Finasteride 5 Mg Tablet PO 5 mg DAILY@0800 AMELIA Administration Furosemide 40 mg 10/03/20 16:15 10/04/20 04:15 Furosemide 10 Mg/Ml Sdv 4ml IVP 40 mg Q12H AMELIA Administration Gabapentin 600 mg 10/03/20 20:00 10/04/20 12:08 Gabapentin 300 Mg Capsule PO 600 mg TID@08,12,20 [facility] Administration Heparin Sodium (Beef Lung) 0 unit 10/03/20 10:53 10/03/20 18:13 Heparin 5,000 Unit/Ml Inj 1 Ml IV 1,700 unit PRN PRN Administration Heparin weight-base protocol Protocol Heparin Sodium/Sodium Chloride 25,000 unit in 500 mls @ 0 mls/hr 10/03/20 11:00 10/04/20 08:23 Heparin Drip IV 14.66 unit/kg/hr .Q0M AMELIA 25 mls/hr Administration Protocol Per Protocol Piperacillin Sod/Tazobactam 50 mls @ 12.5 mls/hr 10/04/20 11:00 10/04/20 12:46 Sod 3.375 gm/ Sodium Chloride IV 12.5 mls/hr Q8H AMELIA Administration Insulin Aspart 0 unit 10/03/20 18:00 10/04/20 12:08 Insulin Aspart 100 Unit/1 Ml SUBCUT 8 unit WM&BEDTIME AMELIA Administration Protocol Isosorbide Mononitrate 30 mg 10/03/20 20:00 10/04/20 08:54 Isosorbide Mononitrate Er 30 Mg Tablet PO 30 mg BID@0800,2000 [facility] Administration Metoprolol Succinate 25 mg 10/03/20 12:46 10/04/20 12:08 Metoprolol Succinate Er (24 Hr) 25 Mg Tablet PO 25 mg Q12H AMELIA Administration Pantoprazole Sodium 40 mg 10/04/20 08:00 10/04/20 08:[address] 40 Mg Tablet PO 40 mg DAILY@0800 AMELIA Administration Tamsulosin HCl 0.4 mg 10/04/20 08:00 10/04/20 08:55 Tamsulosin 0.4 Mg Capsule PO 0.4 mg DAILY@0800 AMELIA Administration Trazodone HCl 50 mg 10/03/20 20:00 10/03/20 19:30 Trazodone 50 Mg Tablet PO 50 mg BEDTIME@2000 AMELIA Administration PFSH Acute PFSH: Medical History ASVD (arteriosclerotic vascular disease) Depression Diabetes DVT (deep venous thrombosis) GERD (gastroesophageal reflux disease) History of CVA (cerebrovascular accident) Hyperlipidemia Hypertension Insomnia Surgical History Hx of CABG (~2006) Family History Other CAD (coronary artery disease) Diabetes Social History Smoking and tobacco status: never smoked Second hand smoke exposure: No Alcohol intake: never Lives independently: Yes Household members: spouse Marital status: Current occupational status: retired History of recent travel: No Current gender identity: Male Vitals/I&O/Wt Last Vital Signs Temp 97.8 F 10/04/20 11:46 Pulse 97 10/04/20 11:46 Resp 20 H 10/04/20 11:46 BP 116/69 10/04/20 11:46 Pulse Ox 94 10/04/20 11:46 10/03/20 10/04/20 10/04/20 22:59 06:59 14:59 Intake Total 339.333 / 339.333 820.667 / 820.667 Output Total 1850 / 1850 1700 / 3550 1700 / 1700 Balance -1510.667 / -1510.667 -1700 / -3210.667 -879.333 / -879.333 Weight last 48 hrs Weight 188 lb Physical Exam Narrative: EXAM NARRATIVE: General: The patient is in no acute distress. Resting comfortably. Able to answer simple questions. Significant hearing impairment. Neck: The JVD was not assessed Respiratory: Auscultation: Bilateral crackles, no wheezing or rhonchi Cardiovascular: Regular rate and rhythm, S1-S2 present, bilateral peripheral edema Abdomen: Soft, nontender, distended, positive bowel sound Musculoskeletal: No obvious joint deformity Skin: No rash Neuro: Difficulty with communication because of hearing impairment, alert, moves all extremities Urinary Catheter Management^: Bowman: Cath Placed During This Visit: yes Reason for Continuing Indwelling Catheter: Accurate Measurement of Urinary Output in Critically Ill Patients Urinary Catheter Date of Insertion: 10/03/20 Urinary Catheter Time of Insertion: 12:29 Data Other Data: Attestation for Other Data: I personally reviewed and interpreted the following: Other data: I have reviewed the patient laboratory, microbiologic and radiologic data. Please see the HPI for detail A&P Assessment and plan (1) Lung mass: The patient was found to have a lingular lung mass on the CT angiogram of the chest when he came to the hospital yesterday. The patient has significant hiatal hernia and I do have concern whether the patient is having aspiration. Although malignancy cannot be ruled out, this could easily be an inflammatory or infectious process. At this point, I am not going to perform any additional diagnostic testing for this lung mass. On bedside ultrasound the patient has very minimal amount of effusion on the left side which is not safe to drain. In addition, the patient is also on anticoagulation. The plan is going to be outpatient follow-up with repeat imaging and further evaluation based on the imaging results. The patient is receiving IV antibiotics. Status: Acute (2) Pulmonary edema: The patient is receiving IV diuretics. Overall the patient is more comfortable and respiratory status is improving. The patient continues to have bilateral B-lines on bedside ultrasound. Status: Acute (3) Pulmonary embolism: The patient is on heparin drip for right middle lobe pulmonary embolism. Status: Acute Qualifiers: Pulmonary embolism type: single subsegmental (without acute cor pulmonale) Qualified Code(s): I26.93 - Single subsegmental pulmonary embolism without acute cor pulmonale (4) Dementia: The patient has history of significant dementia secondary to cerebrovascular accident. I would approach conservatively regarding this lung mass. Status: Acute Qualifiers: Dementia type: vascular dementia Dementia behavioral disturbance: without behavioral disturbance Qualified Code(s): F01.50 - Vascular dementia without behavioral disturbance (5) Hiatal hernia: The patient has a large hiatal hernia on the CT scan. This is likely predisposing the patient to aspiration. In addition to the pulmonary edema, the patient may also be suffering from some degree of pneumonitis from gastric acid aspiration. Status: Acute Coding Level of Care Code Acute Premium Cancellation Clerk for [facility] Fwd Diagnoses Lung mass R91.8 Pulmonary edema J81.1 Pulmonary embolism I26.93 Pulmonary embolism type: single subsegmental (without acute cor pulmonale) Dementia F01.50 Dementia type: vascular dementia Dementia behavioral disturbance: without behavioral disturbance Hiatal hernia K44.9
[2020-10-04] MEDS: heparin 5,000 unit/mL INJ 1 mL IV (14:16)
--- NOTE | 2020-10-04 16:27 | P.PN_ITS ---
Subjective Subjective: Interval history: Afebrile, hemodynamically stable, no acute overnight events. Pain is better controlled today. Continues with 3 L/min nasal canula. Net negative 3L Medications: Reviewed: Yes Vitals/I&O/Wt Last Vital Signs Temp 97.5 F L 10/04/20 16:02 Pulse 96 10/04/20 16:02 Resp 18 10/04/20 16:02 BP 131/78 10/04/20 16:02 Pulse Ox 98 10/04/20 16:02 10/04/20 10/04/20 10/04/20 06:59 14:59 22:59 Intake Total 820.667 / 820.667 Output Total 1700 / 3550 1700 / 1700 Balance -1700 / -3210.667 -879.333 / -879.333 Weight last 48 hrs Weight 85.275 kg Physical Exam Narrative: EXAM NARRATIVE: GENERAL: Awake, alert[] HEENT: Normocephalic, atraumatic, PERRLA. On supplemental O2 at 3 L/min via nasal cannula [] CHEST: Clear to auscultation bilaterally. [] CVS: S1, S2 normal. No murmur, rubs, gallops. Peripheral pulses palpable. [] ABDOMEN: Soft, nontender. Nondistended. Bowel sounds heard. [] EXTREMITIES: Bilateral lower extremity pitting edema improved over yesterday's exam [] Urinary Catheter Management^: Bowman: Cath Placed During This Visit: yes Reason for Continuing Indwelling Catheter: Accurate Measurement of Urinary Output in Critically Ill Patients Urinary Catheter Date of Insertion: 10/03/20 Urinary Catheter Time of Insertion: 12:29 Data : 10/04/20 05:53 10/04/20 05:53 A&P Assessment and plan (1) Pulmonary embolism: Right-sided PE Started on weight-based heparin infusion in the ER, continue same for now. CTA of the chest also mentions a lingular mass with hilar and mediastinal lymphadenopathy concerning for malignancy. Pulmonary consult today Cannot exclude pneumonia at this time, including possibility of aspiration, start zosyn empirically Continue supplemental oxygen to keep O2 sat greater than 92% DuoNeb every 4 hours as needed Status: Acute Qualifiers: Pulmonary embolism type: single subsegmental (without acute cor pulmonale) Qualified Code(s): I26.93 - Single subsegmental pulmonary embolism without acute cor pulmonale (2) Lung mass: Obtain records from recent admission at [facility], serial chest x- rays and CT. If this is truly a mass/malignancy, would expect it to be present on imaging 1 week ago Status: Acute (3) Hypoxia: Multifactorial related to pulmonary embolism, lung mass, pulmonary edema likely as a result of known history of CHF, unknown last ejection fraction. Gr 2 diastolic dysfucntion on echocardiogram. 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 (5) Hypertension: Status: Acute Qualifiers: Hypertension type: essential hypertension Qualified Code(s): I10 - Essential (primary) hypertension (6) Dementia: Status: Acute Qualifiers: Dementia type: vascular dementia Dementia behavioral disturbance: without behavioral disturbance Qualified Code(s): F01.50 - Vascular dementia without behavioral disturbance (7) CHF (congestive heart failure): Status: Acute Qualifiers: Heart failure type: diastolic Heart failure chronicity: acute on chronic Qualified Code(s): I50.33 - Acute on chronic diastolic (congestive) heart failure Additional A&P Information DVT ppx: on heparin infusion DNR/DNI Attestations Medical Necessity Statement*: pulmonary consult, start iv abx, heparin anticoagulation Coding Level of Care Code Acute Interpreter Deaf for [facility] Fwd Diagnoses Pulmonary embolism I26.93 Pulmonary embolism type: single subsegmental (without acute cor pulmonale) Lung mass R91.8 Hypoxia R09.02 Diabetes E11.65; Z79.4 Diabetes mellitus type: type 2 Diabetes mellitus technician terminal and repeater insulin use: with technician terminal and repeater use Diabetes mellitus complication status: with hyperglycemia Hypertension I10 Hypertension type: essential hypertension Dementia F01.50 Dementia type: vascular dementia Dementia behavioral disturbance: without behavioral disturbance CHF (congestive heart failure) I50.33 Heart failure type: diastolic Heart failure chronicity: acute on chronic
--- NOTE | 2020-10-04 16:42 | USCV_ITS ---
Michael Meyers Age: 85 Gender: M : 1935 Exam Date: 10/04/2020 05:43 Ordering Phys: Kyara Sepulveda MD Technologist: NOEMI [place]am [place] [facility] [place]: PE BP: 104 / 54 HR: 92 Rhythm: Sinus Technical Quality: Adequate MEASUREMENTS (Male / Female) Normal Values 2D ECHO LV Diastolic Diameter PLAX 3.8 cm 4.2 - 5.9 / 3.9 - 5.3 cm LV Systolic Diameter PLAX 2.2 cm LV Chamber Size 2.7 cm IVS Diastolic Thickness 1.1 cm 0.6 - 1.0 / 0.6 - 0.9 cm IVS Systolic Thickness 1.5 cm LVPW Diastolic Thickness 1.7 cm 0.6 - 1.0 / 0.6 - 0.9 cm LVPW Systolic Thickness 1.3 cm RV Chamber Size 2.6 cm LVOT Diameter 2.0 cm LV Ejection Fraction 2D Teich 75.7 % LV Ejection Fraction MOD 2C 66.8 % LV Ejection Fraction 2C AL 67.7 % LA Diameter 3.3 cm LA Width 3.7 cm LA Height 5.1 cm RA Width 3.3 cm RA Height 4.4 cm Aorta at Sinotubular Diameter 2.1 cm M-MODE LV Diastolic Diameter MM 3.2 cm 4.2 - 5.9 / 3.9 - 5.3 cm LV Systolic Diameter MM 2.1 cm LV Ejection Fraction MM Teich 65.5 % IVS Diastolic Thickness MM 1.3 cm 0.6 - 1.0 / 0.6 - 0.9 cm IVS Systolic Thickness MM 1.5 cm LVPW Diastolic Thickness MM 1.2 cm 0.6 - 1.0 / 0.6 - 0.9 cm LVPW Systolic Thickness MM 1.5 cm Aortic Annulus Diameter 3.2 cm LA Ao Ratio MM 1.3 DOPPLER AV Peak Velocity 153.0 cm/s LVOT Peak Velocity 96.0 cm/s AV Area Cont Eq vti 1.9 cm squared AV Area Cont Eq pk 2.0 cm squared MV Area PHT 4.4 cm squared Mitral E to A Ratio 1.1 MV E' Velocity 64.5 cm/s Mitral E to MV E' Ratio 19.2 Mitral E to LV E' Lateral Ratio 20.5 Mitral E to LV E' Septal Ratio 18.1 TR Peak Velocity 241.7 cm/s TR Peak Gradient 23.4 mmHg TR Mean Velocity 157.7 cm/s TR Mean Gradient 13.5 mmHg TR Velocity Time Integral 54.9 cm TV Peak E Velocity 70.0 cm/s Right Atrial Pressure 3.0 mmHg Pulmonary Artery Systolic Pressu 26.4 mmHg PV Peak Velocity 88.0 cm/s RV Acceleration Time 0.1 s RV Ejection Time 0.3 s RV AcT/ET 0.4 FINDINGS Left Ventricle Normal left ventricular size. LV systolic function is normal with EF of 55-60%. Septal motion is consistent with prior cardiac surgery. Grade 2 diastolic dysfunction Right Ventricle Grossly normal size and function Right Atrium The right atrium is normal in size. Left Atrium The left atrium is normal in size. Mitral Valve Moderate mitral annular calcification is noted without significant stenosis or prolapse. There is mild mitral regurgitation. Aortic Valve Not well visualized but grossly is calcified without significant sclerosis or stenosis. There is no aortic regurgitation. Tricuspid Valve Structurally normal tricuspid valve without significant stenosis. Trace tricuspid regurgitation. Insufficient TR jet to calculate RVSP Pulmonic Valve Not well visualized Pericardium Normal pericardium without effusion. Aorta Normal ascending aorta dimension. CONCLUSIONS Technically limited study LV systolic function is normal with EF of 55-60% Grade 2 diastolic dysfunction Moderate mitral annular calcification. Mild mitral regurgitation No comparison studies are available Brenton Schwartz MD (Electronically Signed) Final Date: 04 Oct 2020 08:13 S
[2020-10-04 17:00] LABS: Glucose Point of Care 208 mg/dL (70-110)
[2020-10-04 20:32] LABS: Glucose Point of Care 250 mg/dL (70-110)
[2020-10-04 20:51] LABS: Partial Thromboplastin Time 62.8 SECONDS (23.9-36.7)
[2020-10-04] MEDS: trazodone 50 mg Tablet PO (21:42)
[2020-10-05] VITALS (31 sets, daily range): BP systolic 100–126; BP diastolic 60–83; PULSE 85–153; RESP 16–26; TEMP 36.6–37.2; O2SAT 90–98
[2020-10-05] MEDS: metoprolol succinate ER (24 HR) 25 mg Tablet PO ×3 (00:43→23:23)
[2020-10-05] MEDS: HYDROcodone-acetaminophen 5-325 mg Tablet 1 TAB PO (00:43)
[2020-10-05 02:36] LABS: Platelet Count 166 10^3/cmm (130-400)
[2020-10-05 02:41] LABS: Alanine Aminotransferase 13 U/L (0-41); Albumin Level 2.6 g/dL (3.5-5.2); Alkaline Phosphatase 47 IU/L (40-130); Anion Gap 13.3 (5-19); Aspartate Amino Transferase 14 U/L (0-40); Blood Urea Nitrogen 17 mg/dL (8-23); Calcium 7.9 mg/dL (8.5-10.5); Carbon Dioxide 30 mmol/L (22-29); Chloride 96 mmol/L (98-107); Globulin 3.2 g/dL (1.3-4.6); Glucose 186 mg/dL (65-115); Osmolality Calculated 288 mOsm/kg (285-295); Potassium 3.3 mmol/L (3.5-5.1); Sodium 136 mmol/L (136-145); Total Bilirubin 0.7 mg/dL (0.15-1.2); Total Protein 5.8 g/dL (6.6-8.7)
[2020-10-05] MEDS: ipratropium-albuterol 3 mL Neb INHALATION ×5 (03:37→20:17)
[2020-10-05] MEDS: piperacillin-tazobactam 3.375 GM in sodium chloride 0.9% (plus) 50 ML IV ×3 (04:16→16:55)
[2020-10-05] MEDS: FUROsemide 10 mg/mL SDV 4mL 40 MG IVP ×2 (04:26→16:55)
[2020-10-05] MEDS: heparin drip 25,000 UNIT/500 ML PREMIX 27 UNIT IV (04:55)
[2020-10-05 06:45] LABS: Glucose Point of Care 187 mg/dL (70-110)
[2020-10-05 08:16] LABS: Partial Thromboplastin Time 66.7 SECONDS (23.9-36.7)
[2020-10-05] MEDS: finasteride 5 mg Tablet PO (08:43)
[2020-10-05] MEDS: isosorbide mononitrate ER 30 mg Tablet PO (08:43)
[2020-10-05] MEDS: aspirin 81 mg EC Tablet PO (08:43)
[2020-10-05] MEDS: gabapentin 300 mg Capsule 600 MG PO ×3 (08:43→21:12)
[2020-10-05] MEDS: amlodipine 5 mg Tablet PO (08:43)
[2020-10-05] MEDS: pantoprazole DR 40 mg Tablet PO (08:43)
[2020-10-05] MEDS: atorvastatin 40 mg Tablet 80 MG PO (08:43)
[2020-10-05] MEDS: tamsulosin 0.4 mg Capsule PO (08:43)
[2020-10-05] MEDS: escitalopram 10 mg Tablet PO (08:43)
--- NOTE | 2020-10-05 09:56 | PC.NURSE ---
rcvd verbal order for PT eval and treat. freelance writer put order in as requested.
[2020-10-05] MEDS: potassium chloride ER 20 mEq Tablet 40 MEQ PO (10:45)
[2020-10-05] MEDS: enoxaparin 80 mg/0.8 mL Syringe SUBCUT ×2 (10:45→21:13)
[2020-10-05 12:06] LABS: Glucose Point of Care 254 mg/dL (70-110)
[2020-10-05] MEDS: morphine 4 mg/mL SDV 1 mL 2 MG IVP ×3 (13:40→22:03)
[2020-10-05 15:03] LABS: Partial Thromboplastin Time 38.1 SECONDS (23.9-36.7)
[2020-10-05 16:51] LABS: Glucose Point of Care 261 mg/dL (70-110)
--- NOTE | 2020-10-05 17:34 | PC.PT ---
Attempted PT evaluation 3 times today, initially patient complained of fatigue, stated had just been up, then complained of chest pain, did receive some pain medicine, but even 1 hour later this was not sufficient, to gain patient participation; came back later patient sleeping soundly at that time; will reattempt tomorrow
--- NOTE | 2020-10-05 17:49 | P.PN_ITS ---
Subjective Subjective: Interval history: c/o chest pain again today, intermittently tachycardic with HR up to 130-150 overnight. K at 3.3 Medications: Reviewed: Yes Vitals/I&O/Wt Last Vital Signs Temp 98.0 F 10/05/20 11:53 Pulse 85 10/05/20 15:46 Resp 18 10/05/20 15:46 BP 105/64 10/05/20 15:46 Pulse Ox 95 10/05/20 15:46 10/05/20 10/05/20 10/05/20 06:59 14:59 22:59 Intake Total 1080 / 2320.667 547.7 / 547.7 50 / 597.7 Output Total 500 / 3410 1300 / 1300 450 / 1750 Balance 580 / -1089.333 -752.3 / -752.3 -400 / -1152.3 Physical Exam Narrative: EXAM NARRATIVE: GENERAL: Awake, alert, mild distress 2/2 pain [] HEENT: Normocephalic, atraumatic, PERRLA. On supplemental O2 at 3 L/min via nasal cannula [] CHEST: Clear to auscultation bilaterally. [] CVS: S1, S2 normal. No murmur, rubs, gallops. Peripheral pulses palpable. [] ABDOMEN: Soft, nontender. Nondistended. Bowel sounds heard. [] EXTREMITIES: Bilateral lower extremity pitting edema improved over yesterday's exam [] Urinary Catheter Management^: Bowman: Cath Placed During This Visit: yes Reason for Continuing Indwelling Catheter: Accurate Measurement of Urinary Output in Critically Ill Patients Urinary Catheter Date of Insertion: 10/03/20 Urinary Catheter Time of Insertion: 12:29 Data : 10/05/20 02:18 10/05/20 02:18 A&P Assessment and plan (1) Pulmonary embolism: Right-sided PE Started on weight-based heparin infusion in the ER, change to subcutaneous lovenox CTA of the chest also mentions a lingular mass with hilar and mediastinal lymphadenopathy concerning for malignancy. Pulmonary consult appreciated Plan to continue iv abx and diuresis at this time, follow up serial CT in 2 weeks as outpatient, if mass appears to be improving less likely to be mal ignancy. Cannot exclude pneumonia at this time, including possibility of aspiration, started zosyn empirically Continue supplemental oxygen to keep O2 sat greater than 92% DuCristyb every 4 hours as needed Status: Acute Qualifiers: Pulmonary embolism type: single subsegmental (without acute cor pulmonale) Qualified Code(s): I26.93 - Single subsegmental pulmonary embolism without acute cor pulmonale (2) Lung mass: Obtain records from recent admission at [facility], serial chest x- rays and CT. If this is truly a mass/malignancy, would expect it to be present on imaging 1 week ago Status: Acute (3) Hypoxia: Multifactorial related to pulmonary embolism, lung mass, pulmonary edema likely as a result of known history of CHF, unknown last ejection fraction. Gr 2 diastolic dysfucntion on echocardiogram. Status: Acute (4) Diabetes: insulin sliding scale insulin sliding scale Status: Acute Qualifiers: Diabetes mellitus type: type 2 Diabetes mellitus intermission coordinator insulin use: with longterm use Diabetes mellitus complication status: with hyperglycemia Qualified Code(s): E11.65 - Type 2 diabetes mellitus with hyperglycemia; Z79.4 - residential (current) use of insulin (5) Hypertension: Status: Acute Qualifiers: Hypertension type: essential hypertension Qualified Code(s): I10 - Essential (primary) hypertension (6) Dementia: Status: Acute Qualifiers: Dementia type: vascular dementia Dementia behavioral disturbance: without behavioral disturbance Qualified Code(s): F01.50 - Vascular dementia without behavioral disturbance (7) CHF (congestive heart failure): Status: Acute Qualifiers: Heart failure type: diastolic Heart failure chronicity: acute on chronic Qualified Code(s): I50.33 - Acute on chronic diastolic (congestive) heart failure Additional A&P Information A fib with RVR: metoprolol to continue, 5mg IVP prn DVT ppx: on heparin infusion DNR/DNI Attestations 2 Medical Necessity Statement*: change iv heparin to s/c lovenox, iv diuresis Coding Level of Care Code Acute Car Electronics Installer for Chg Fwd Diagnoses Pulmonary embolism I26.93 Pulmonary embolism type: single subsegmental (without acute cor pulmonale) Lung mass R91.8 Hypoxia R09.02 Diabetes E11.65; Z79.4 Diabetes mellitus type: type 2 Diabetes mellitus longterm insulin use: with intermission coordinator use Diabetes mellitus complication status: with hyperglycemia Hypertension I10 Hypertension type: essential hypertension Dementia F01.50 Dementia type: vascular dementia Dementia behavioral disturbance: without behavioral disturbance CHF (congestive heart failure) I50.33 Heart failure type: diastolic Heart failure chronicity: acute on chronic
[2020-10-05] MEDS: metoprolol tartrate 1 mg/1 mL SDV 5 mL 5 MG IV ×2 (17:58→18:51)
--- NOTE | 2020-10-05 18:25 | PC.NURSE ---
[address] Sepulveda that patient's heart rate of 136-150. Per Dr Sepulveda order state EKG and she is going to put order in for metoprolol. patient's current blood pressure is 118/68. Staple Fiber Washer and charge nurse done EKG and results given to Dr Sepulveda. [address] Sepulveda that patient's blood pressure is now 100/60 and HR is 132.
--- NOTE | 2020-10-05 18:48 | PC.NURSE ---
Notified Dr Sepulveda that patient's heart rate is 132 and blood pressure is 110/73. Rcvd order from Dr Sepulveda for 5mg IVP metoprolol once. Health Workers put order in for metoprolol.
--- NOTE | 2020-10-05 19:01 | PC.NURSE ---
notified Dr Sepulveda that patient's blood pressure is now 112/66 and heart rate is 108/120
--- NOTE | 2020-10-05 19:55 | ECG_ITS ---
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 Measurements Intervals [place] Rate: 139 P: MI: QRS: 23 QRSD: 121 T: 213 QT: 324 QTc: 494 Interpretive Statements ATRIAL fibrillation with PVC or aberrantly conducted rylee LEFT VENTRICULAR HYPERTROPHY AND ST-T CHANGE POSSIBLE SEPTAL MYOCARDIAL INFARCTION ST and T wave abnormality consider inferolateral ischemia Compared to ECG 10/05/2020 18:04:50 Ventricular premature complex(es) now present Aberrant conduction of supraventricular beat(s) now present ST (T wave) deviation now present Myocardial infarct finding now present Electronically Signed On 10-12-2020 17:47:11 CDT by Eveline Paige M.D. [id number]
[2020-10-05 20:11] LABS: Troponin(5th) Baseline 109 ng/L (0-15)
--- NOTE | 2020-10-05 20:26 | PC.NURSE ---
Day shift nurse gave in report to this nurse Metoprolol 5 mg IVP due at 1849 as a one time dose not administered due to patients blood pressure.
[2020-10-05 20:31] LABS: Glucose Point of Care 225 mg/dL (70-110)
[2020-10-05] MEDS: trazodone 50 mg Tablet PO (21:12)
[2020-10-05 21:27] LABS: Troponin 5 2HR Delta 9.8 ABS# (0-10)
[2020-10-05 21:39] LABS: Troponin 5 2HR 118.8 ng/L (0-15)
--- NOTE | 2020-10-05 22:11 | PC.NURSE ---
New orders; Labetalol IVP that was previous ordered on PM shift has been held based on pt BP of 104/64. RN contacted MD [place] certified addiction counselor to report these findings and receive new order set. gave orders to admin Amio bolus, and start gtt per protocol. New orders for pt to be transferred to CSU for further monitoring. Pt given ordered PRN Morphine based on complaints of left chest and left shoulder pain.
[2020-10-05] MEDS: potassium chloride ER 20 mEq Tablet PO (22:18)
--- NOTE | 2020-10-05 23:09 | PC.NURSE ---
This nurse called report to Ilda on CSU, Pt transferred by bed with all personal belongings by ICU nurse CLINT Murray.
--- NOTE | 2020-10-05 23:14 | PC.NURSE ---
This Nurse called PT Freda and gave an update of vital signs, recent lab work, and reason for pt transfer to CSU.
--- NOTE | 2020-10-05 23:19 | PC.NURSE ---
Patient arrived to CSU from Med-Surg after report was received via phone. Amio drip running per order. Heart rate is ranging 130s to 140s. Frequent monitoring of blood pressure and heart rate. 108/76. Patient has no complaints at this time. Patient has been oriented to his room and has call light within reach.
--- NOTE | 2020-10-05 23:30 | PC.NURSE ---
Dr. Albert notified of Amio drip running at 1 mg/min and heart rate still 130s-140s.
--- NOTE | 2020-10-05 23:55 | ECG_ITS ---
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 Measurements Intervals [place] Rate: 136 P: SC: QRS: 45 QRSD: 120 T: 221 QT: 324 QTc: 487 Interpretive Statements ATRIAL FIBRILLATION WITH RAPID VENTRICULAR RESPONSE POSSIBLE LEFT VENTRICULAR HYPERTROPHY [VOLTAGE CRITERIA PLUS LAE OR QRS WIDENING] ST DEVIATION AND MODERATE T-WAVE ABNORMALITY, CONSIDER LATERAL ISCHEMIA ST DEVIATION AND MODERATE T-WAVE ABNORMALITY, CONSIDER INFERIOR ISCHEMIA Compared to ECG 10/03/2020 20:16:01 No significant changes Electronically Signed On 10-12-2020 17:47:26 CDT by Eveline Paige M.D. [id number]
[2020-10-06] VITALS (24 sets, daily range): BP systolic 97–136; BP diastolic 63–97; PULSE 85–135; RESP 14–32; TEMP 35.9–36.7; O2SAT 91–95
[2020-10-06 01:12] LABS: Basophils % 0.3 %; Eosinophils # 0.2 10^3/uL (0.0-0.8); Eosinophils % 1.6 %; Hematocrit 41.8 % (42.0-52.0); Hemoglobin 13.2 g/dL (11.7-16.6); Lymphocytes # 1.8 10^3/uL (0.8-4.8); Lymphocytes % 13.5 %; Mean Corpuscular HGB Conc 31.6 g/dL (30.0-36.0); Mean Corpuscular Hemoglobin 26.8 pg (28.0-34.0); Mean Platelet Volume 9.6 fL (7.4-10.4); Monocytes # 1.6 10^3/uL (0.2-0.9); Monocytes % 12.5 %; Neutrophils # 9.37 10^3/uL (1.8-7.7); Neutrophils % 71.7 %; Nucleated Red Blood Cells % 0 %; Platelet Count 189 10^3/cmm (130-400); Red Blood Count 4.92 10^6/uL (4.1-5.3); Red Cell Distribution Width 14.4 % (12.1-15.1); White Blood Count 13.1 10^3/uL (4.0-10.0)
[2020-10-06 01:26] LABS: Alanine Aminotransferase 14 U/L (0-41); Albumin Level 3.1 g/dL (3.5-5.2); Alkaline Phosphatase 51 IU/L (40-130); Anion Gap 12.8 (5-19); Aspartate Amino Transferase 14 U/L (0-40); Blood Urea Nitrogen 21 mg/dL (8-23); Calcium 8.1 mg/dL (8.5-10.5); Carbon Dioxide 30 mmol/L (22-29); Chloride 92 mmol/L (98-107); Glucose 203 mg/dL (65-115); Osmolality Calculated 281 mOsm/kg (285-295); Potassium 3.8 mmol/L (3.5-5.1); Sodium 131 mmol/L (136-145); Total Bilirubin 0.7 mg/dL (0.15-1.2); Total Protein 6.1 g/dL (6.6-8.7); Troponin 5 6HR 97.11 ng/L (0-15)
[2020-10-06] MEDS: ipratropium-albuterol 3 mL Neb INHALATION ×5 (01:28→22:13)
[2020-10-06 01:33] LABS: Troponin 5 6HR Delta -11.89 ng/L (0-12)
[2020-10-06] MEDS: FUROsemide 10 mg/mL SDV 4mL 40 MG IVP ×2 (03:18→17:11)
[2020-10-06] MEDS: piperacillin-tazobactam 3.375 GM in sodium chloride 0.9% (plus) 50 ML IV ×3 (03:18→18:13)
--- NOTE | 2020-10-06 04:56 | PC.NURSE ---
Patient's heart rate upon arriving to CSU was 130s to 140s. Heart rate is currently ranging 110s-130s. Hospitalist is aware of current heart rate on Amio drip. No new orders. Patient is asymptomatic. Blood pressure 123/97. Oxygen saturation is 92 percent on 4 L NC. Patient does not have any complaints or pain. Patient is not in any distress.
[2020-10-06 06:53] LABS: Glucose Point of Care 253 mg/dL (70-110)
[2020-10-06] MEDS: pantoprazole DR 40 mg Tablet PO (08:10)
[2020-10-06] MEDS: aspirin 81 mg EC Tablet PO (08:10)
[2020-10-06] MEDS: gabapentin 300 mg Capsule 600 MG PO ×3 (08:10→20:44)
[2020-10-06] MEDS: isosorbide mononitrate ER 30 mg Tablet PO ×2 (08:10→20:44)
[2020-10-06] MEDS: finasteride 5 mg Tablet PO (08:10)
[2020-10-06] MEDS: tamsulosin 0.4 mg Capsule PO (08:10)
[2020-10-06] MEDS: atorvastatin 40 mg Tablet 80 MG PO (08:10)
[2020-10-06] MEDS: escitalopram 10 mg Tablet PO (08:10)
[2020-10-06] MEDS: amlodipine 5 mg Tablet PO (08:11)
--- NOTE | 2020-10-06 09:28 | PC.CHAP ---
Pastoral Care Encounter/Spiritual Assessment Type of Contact [] Declined welfare supervisor visit [] Patient/Family/Request visit [] Outpatient visit [] Follow-up visit [] Physician referral [] Code/Alert [x] Routine visit [] Staff referral [] Actively dying [] Patient sleeping [] Family support [] [] Out of room [] Palliative care [] [] Receiving care in room [] Pre-surgical visit [] Trauma [] Long length of stay [] ICU visit [] Other: Relational/Emotional Strength [] Patient feels connected with others/family/visitors/staff [] Distress [] Loneliness/isolation [] Abandonment Spirituality of Patient [] Person of Chen [] Attends Islam of their Chen [] Believes in Prayer [] Reads Bible or Presybeterian materials [x] There are Spiritual issues to be addressed Associate Professor Of Media Arts Interventions [] Prayer [x] Active listening [x] Non-anxious presence [x] Spiritual/emotional support [] Crisis/trauma care [] Spiritual counseling [] Bereavement support [] Provided bereavement packet [] Provided Bible/devotional materials [] Provided toy/stuffed animal, coloring book to patient or family member [] Provided Communion [] Anointing/[place] [] Salvation [] Completed spiritual assessment [] Other: Impact on Illness or Injury [] Angry [] Fearful [] Anxious [] Often cries [] Exhaustion [] Unable to work [] Unable to attend yarsanism [] Unable to walk/stand [] Unable to read [] Unable to drive [] Unable to eat/drink [] Unable to sleep [] Unable to be with family [] Patient intubated [] Other: Summary Attempted visit with Pt but it quickly became apparent the pt could not hear what the welfare supervisor was saying even though welfare supervisor was speaking as loud as possible. Due to the hearing problem, an appropriate spiritual assessment was not able to be completed. Pt did indicate he would like prayer and prayed aloud also as welfare supervisor prayed. Time spent with patient 5m
--- NOTE | 2020-10-06 09:45 | PC.SOCIAL ---
Pg 2 IMM Explained to pt & his , Pg 2 IMM. No questions voiced. Provided pt a copy. Signed, dated, & timed a copy & placed in chart.
--- NOTE | 2020-10-06 11:14 | PC.NURSE ---
Patient heart rate still elevated in the 120's in AFib. Dr. Sepulveda notified, Ordered cardizem PO 60 mg Q6H. Please stop metoprolol. Will continue to monitor patient.
[2020-10-06] MEDS: enoxaparin 80 mg/0.8 mL Syringe SUBCUT ×2 (11:33→20:44)
[2020-10-06] MEDS: dilTIAZem 60 mg Tablet PO ×2 (11:34→17:10)
[2020-10-06] MEDS: HYDROcodone-acetaminophen 5-325 mg Tablet 1 TAB PO (11:34)
[2020-10-06 11:45] LABS: Glucose Point of Care 344 mg/dL (70-110)
--- NOTE | 2020-10-06 11:52 | P.PN_ITS ---
Subjective Subjective: Interval history: Transfererd to CSU overnight due to uncontrolled a fib with RVR with HR 120-130, chets pain improved but persisting, troponin series negative last evening, leukocytois persisting at 13, afberile, uncontrolled fingersticks today Medications: Reviewed: Yes Vitals/I&O/Wt Last Vital Signs Temp 98.1 F 10/06/20 11:22 Pulse 127 H 10/06/20 11:22 Resp 15 10/06/20 11:22 BP 121/78 10/06/20 11:22 Pulse Ox 95 10/06/20 11:22 10/05/20 10/06/20 10/06/20 22:59 06:59 14:59 Intake Total 873 / 1420.7 302.975 / 1723.675 410 / 410 Output Total 1400 / 2700 500 / 3200 Balance -527 / -1279.3 -197.025 / -1476.325 410 / 410 Physical Exam Narrative: EXAM NARRATIVE: GENERAL: Awake, alert, mild distress 2/2 pain [] HEENT: Normocephalic, atraumatic, PERRLA. On supplemental O2 at 3 L/min via nasal cannula [] CHEST: Clear to auscultation bilaterally. [] CVS: S1, S2 normal. No murmur, rubs, gallops. Peripheral pulses palpable. [] ABDOMEN: Soft, nontender. Nondistended. Bowel sounds heard. [] EXTREMITIES: Bilateral lower extremity pitting edema improved over yesterday's exam [] Urinary Catheter Management^: Bowman: Cath Placed During This Visit: yes Reason for Continuing Indwelling Catheter: Accurate Measurement of Urinary Output in Critically Ill Patients Urinary Catheter Date of Insertion: 10/03/20 Urinary Catheter Time of Insertion: 12:29 Data : 10/06/20 01:00 10/06/20 01:00 Micro: Microbiology 10/05/20 16:47 Bacterial Antigens - Final Urine,Voided 10/05/20 16:47 Legionella Urinary Antigen - Final Urine Catheterized A&P Assessment and plan (1) Pulmonary embolism: Right-sided PE Currently on subcutaneous lovenox Status: Acute Qualifiers: Pulmonary embolism type: single subsegmental (without acute cor pulmonale) Qualified Code(s): I26.93 - Single subsegmental pulmonary embolism without acute cor pulmonale (2) Lung mass: CTA of the chest also mentions a lingular mass with hilar and mediastinal lymphadenopathy concerning for malignancy. Pulmonary consult appreciated Plan to continue iv abx and diuresis at this time, follow up serial CT in 2 weeks as outpatient, if mass appears to be improving less likely to be malignancy. Cannot exclude pneumonia at this time, including possibility of aspiration, star augustin hampton empirically Afberile, procal negative however still with persisting leukocytosis Continue supplemental oxygen to keep O2 sat greater than 92% DuoNeb every 4 hours as needed Status: Acute (3) Hypoxia: Multifactorial related to pulmonary embolism, lung mass, pulmonary edema likely as a result of known history of CHF, unknown last ejection fraction. Gr 2 diastolic dysfucntion on echocardiogram. Status: Acute (4) Diabetes: insulin sliding scale insulin sliding scale Status: Acute Qualifiers: Diabetes mellitus type: type 2 Diabetes mellitus custodial insulin use: with exterminator termite use Diabetes mellitus complication status: with hyperglycemia Qualified Code(s): E11.65 - Type 2 diabetes mellitus with hyperglycemia; Z79.4 - [facility] (current) use of insulin (5) Hypertension: Status: Acute Qualifiers: Hypertension type: essential hypertension Qualified Code(s): I10 - Essential (primary) hypertension (6) Dementia: Status: Acute Qualifiers: Dementia type: vascular dementia Dementia behavioral disturbance: without behavioral disturbance Qualified Code(s): F01.50 - Vascular dementia without behavioral disturbance (7) CHF (congestive heart failure): Acute on chronic diastolic CHF exacerbation On lasix 40mg iv q12h renal function stable net negative 5.3 L since admission Status: Acute Qualifiers: Heart failure type: diastolic Heart failure chronicity: acute on chronic Qualified Code(s): I50.33 - Acute on chronic diastolic (congestive) heart failure (8) Atrial fibrillation with RVR: unclear chronicity currently on amiodarone infusion , po and iv metoprolol without significant effect on HR Start cardizem 60mg po q6h and monitor for response. already on a/c with lovenox for PE Status: Acute Additional A&P Information DVT ppx: on full dose lovenox DNR/DNI Attestations Medical Necessity Statement*: a fib with RVR, needs rate control, close monitoring of cardiac ans respiratory status Coding Level of Care Code Acute Senior Java Software Engineer for Chg Fwd Diagnoses Pulmonary embolism I26.93 Pulmonary embolism type: single subsegmental (without acute cor pulmonale) Lung mass R91.8 Hypoxia R09.02 Diabetes E11.65; Z79.4 Diabetes mellitus type: type 2 Diabetes mellitus custodial insulin use: with exterminator termite use Diabetes mellitus complication status: with hyperglycemia Hypertension I10 Hypertension type: essential hypertension Dementia F01.50 Dementia type: vascular dementia Dementia behavioral disturbance: without behavioral disturbance CHF (congestive heart failure) I50.33 Heart failure type: diastolic Heart failure chronicity: acute on chronic Atrial fibrillation with RVR I48.91
--- NOTE | 2020-10-06 16:13 | PC.PT ---
Nursing requests hold PT today patient still having high heart rates up to 140; will follow
[2020-10-06 16:23] LABS: Glucose Point of Care 273 mg/dL (70-110)
--- NOTE | 2020-10-06 18:41 | PC.NURSE ---
Per Dr. Sepulveda, please let amiodarone bag finish and discontinue IV amiodarone.
[2020-10-06 20:40] LABS: Glucose Point of Care 302 mg/dL (70-110)
[2020-10-06] MEDS: trazodone 50 mg Tablet PO (20:44)
--- NOTE | 2020-10-06 23:45 | PC.NURSE ---
Addendum entered by Allison Clark RN 10/07/20 00:30: Patient states that it is painful for him to cough. Original Note: Dr. Albert notified of patient asking for something for a cough.
[2020-10-07] VITALS (18 sets, daily range): BP systolic 98–130; BP diastolic 62–71; PULSE 76–134; RESP 17–26; TEMP 36.4–36.6; O2SAT 82–94
[2020-10-07] MEDS: HYDROcodone-acetaminophen 5-325 mg Tablet 1 TAB PO ×4 (00:34→19:26)
[2020-10-07] MEDS: dilTIAZem 60 mg Tablet PO ×4 (00:34→17:53)
[2020-10-07] MEDS: guaiFENesin-dextromethorphan UDC 10 mL 5 ML PO ×2 (00:34→19:27)
[2020-10-07] MEDS: ipratropium-albuterol 3 mL Neb INHALATION ×3 (00:37→09:23)
[2020-10-07] MEDS: FUROsemide 10 mg/mL SDV 4mL 40 MG IVP ×2 (03:51→17:53)
[2020-10-07] MEDS: piperacillin-tazobactam 3.375 GM in sodium chloride 0.9% (plus) 50 ML IV ×3 (03:51→19:27)
--- NOTE | 2020-10-07 04:50 | PC.NURSE ---
Around 0445: Responded to corn lab technician calling for assistance in patient room. Found patient coughing, flushed, and diaphoretic, mouth dry. Patients HOB raised and oxygen re-applied, offered fluids. Patient alert and oriented. Vitals stable. Notified CLINT Cooper.
[2020-10-07 05:44] LABS: Alanine Aminotransferase 14 U/L (0-41); Albumin Level 2.7 g/dL (3.5-5.2); Alkaline Phosphatase 51 IU/L (40-130); Anion Gap 11.5 (5-19); Aspartate Amino Transferase 12 U/L (0-40); Blood Urea Nitrogen 25 mg/dL (8-23); Calcium 8.3 mg/dL (8.5-10.5); Carbon Dioxide 35 mmol/L (22-29); Chloride 91 mmol/L (98-107); Globulin 3.6 g/dL (1.3-4.6); Glucose 243 mg/dL (65-115); Osmolality Calculated 290 mOsm/kg (285-295); Potassium 3.5 mmol/L (3.5-5.1); Sodium 134 mmol/L (136-145); Total Bilirubin 0.7 mg/dL (0.15-1.2); Total Protein 6.3 g/dL (6.6-8.7)
[2020-10-07 06:54] LABS: Glucose Point of Care 239 mg/dL (70-110)
[2020-10-07] MEDS: pantoprazole DR 40 mg Tablet PO (08:59)
[2020-10-07] MEDS: gabapentin 300 mg Capsule 600 MG PO ×3 (08:59→19:26)
[2020-10-07] MEDS: aspirin 81 mg EC Tablet PO (09:00)
[2020-10-07] MEDS: atorvastatin 40 mg Tablet 80 MG PO (09:00)
[2020-10-07] MEDS: finasteride 5 mg Tablet PO (09:00)
[2020-10-07] MEDS: tamsulosin 0.4 mg Capsule PO (09:00)
[2020-10-07] MEDS: escitalopram 10 mg Tablet PO (09:00)
[2020-10-07] MEDS: isosorbide mononitrate ER 30 mg Tablet PO ×2 (09:16→19:26)
[2020-10-07] MEDS: enoxaparin 80 mg/0.8 mL Syringe SUBCUT ×2 (09:16→19:27)
--- NOTE | 2020-10-07 10:53 | XR_ITS ---
WS: [id number] Portable AP upright chest, 10/07/2020 Clinical Data: chest pain, follow up lung mass Comparison: Portable chest, 10/03/2020. Findings: The patchy opacities in both lungs have diminished slightly. There is elevation of left flaco phragm. Heart is at the upper limits of normal. Midline sternotomy sutures and mediastinal clips are present. There are monitor leads on the chest wall appear XR/XR chest 1V portable [id number] Impression: 1. Improvement in bilateral pulmonary opacities. 2. Atherosclerosis.
[2020-10-07] MEDS: morphine 4 mg/mL SDV 1 mL 2 MG IVP (11:03)
[2020-10-07 11:37] LABS: Glucose Point of Care 361 mg/dL (70-110)
[2020-10-07] MEDS: amiodarone 200 mg Tablet 400 MG PO ×2 (11:54→17:53)
--- NOTE | 2020-10-07 15:04 | PC.NURSE ---
verbal instructions from Dr brambila while on unit to remove vásquez cath
[2020-10-07] MEDS: vancomycin 1,250 MG/250 ML PIGGYBACK 250 MG IV (15:16)
[2020-10-07 16:46] LABS: Glucose Point of Care 251 mg/dL (70-110)
--- NOTE | 2020-10-07 17:13 | P.PN_ITS ---
Subjective Subjective: Interval history: Continues to c/o chest sided discomfort. Net negative 6L now. Overnight off amiodarone infusion, resumed at 400mg po BID today. Afberile. 02 sat down to 82% this morning, patient reports subjective dyspna. CXR with improving infiltrates Medications: Reviewed: Yes Vitals/I&O/Wt Last Vital Signs Temp 97.9 F 10/07/20 12:31 Pulse 132 H 10/07/20 12:31 Resp 20 H 10/07/20 11:03 BP 98/71 10/07/20 12:31 Pulse Ox 93 10/07/20 12:31 10/07/20 10/07/20 10/07/20 06:59 14:59 22:59 Intake Total 515.025 / 1865.025 470 / 470 50 / 520 Output Total 950 / 1850 1325 / 1325 300 / 1625 Balance -434.975 / 15.025 -855 / -855 -250 / -1105 Physical Exam Narrative: EXAM NARRATIVE: GENERAL: Awake, alert, mild distress 2/2 pain [] HEENT: Normocephalic, atraumatic, PERRLA. On supplemental O2 at 3 L/min via nasal cannula [] CHEST: Clear to auscultation bilaterally. [] CVS: S1, S2 normal. No murmur, rubs, gallops. Peripheral pulses palpable. [] ABDOMEN: Soft, nontender. Nondistended. Bowel sounds heard. [] EXTREMITIES: Bilateral lower extremity pitting edema improved over yesterday's exam [] Urinary Catheter Management^: Bowman: Cath Placed During This Visit: yes, but has since been removed by the nurse Reason for Continuing Indwelling Catheter: Accurate Measurement of Urinary Output in Critically Ill Patients Urinary Catheter Date of Insertion: 10/03/20 Urinary Catheter Time of Insertion: 12:29 Date Urinary Catheter Removed: 10/07/20 Time Urinary Catheter Discontinued: 15:07 Data : 10/06/20 01:00 10/07/20 04:49 Micro: Microbiology 10/06/20 13:00 Blood Culture - Preliminary Blood NEGATIVE TO DATE 10/06/20 13:05 Blood Culture - Preliminary Blood NEGATIVE TO DATE 10/06/20 12:50 MRSA Culture - Final Nose 10/05/20 16:47 Bacterial Antigens - Final Urine,Voided A&P Assessment and plan (1) Pulmonary embolism: Right-sided PE Currently on subcutaneous lovenox , continue same Status: Acute Qualifiers: Pulmonary embolism type: single subsegmental (without acute cor pulmonale) Qualified Code(s): I26.93 - Single subsegmental pulmonary embolism without acute cor pulmonale (2) Lung mass: CTA of the chest also mentions a lingular mass with hilar and mediastinal lymphadenopathy concerning for malignancy. Pulmonary consult appreciated Plan to continue iv abx and diuresis at this time, follow up serial CT in 2 weeks as outpatient, if mass appears to be improving less likely to be malignancy. Unable to obtain prior imaging from [facility]. Cannot exclude pneumonia at this time, including possibility of aspiration, started zosyn empirically. Add vanocmyicn today given falling 02 saturation, MRSA PCR pending. Appreciate swallow evaluation, Diet changed to dysphagia 3 Afberile, procal negative however still with persisting leukocytosis , added vancomycin Continue supplemental oxygen to keep O2 sat greater than 92% DuoNeb every 4 hours as needed Status: Acute (3) Hypoxia: Multifactorial related to pulmonary embolism, lung mass, pulmonary edema likely as a result of known history of CHF, unknown last ejection fraction. Gr 2 diastolic dysfucntion on echocardiogram. Status: Acute (4) Diabetes: insulin sliding scale insulin sliding scale Status: Acute Qualifiers: Diabetes mellitus type: type 2 Diabetes mellitus long term care pharmacist insulin use: with senior living use Diabetes mellitus complication status: with hyperglycemia Qualified Code(s): E11.65 - Type 2 diabetes mellitus with hyperglycemia; Z79.4 - [facility] (current) use of insulin (5) Hypertension: currently well controlled Status: Acute Qualifiers: Hypertension type: essential hypertension Qualified Code(s): I10 - Essential (primary) hypertension (6) Dementia: advanced Status: Acute Qualifiers: Dementia type: vascular dementia Dementia behavioral disturbance: without behavioral disturbance Qualified Code(s): F01.50 - Vascular dementia without behavioral disturbance (7) CHF (congestive heart failure): Acute on chronic diastolic CHF exacerbation On lasix 40mg iv q12h ---> change to lasix 60mg po BID Remove Bowman today renal function stable net negative 6L since admission Status: Acute Qualifiers: Heart failure type: diastolic Heart failure chronicity: acute on chronic Qualified Code(s): I50.33 - Acute on chronic diastolic (congestive) heart failure (8) Atrial fibrillation with RVR: unclear chronicity coverted to sinus rhythm yesetrday withamiodaron einfusion, discontinued ove rnight, again with A fib with RVR this evening, start amiodarone 400mg po BID Continue cardizem 60mg po q6h and monitor for response. already on a/c with lovenox for PE Status: Acute Additional A&P Information DVT ppx: on full dose lovenox DNR/DNI Dispo: significant deconditioning, restricted mobility, will benefit from skilled therapy Attestations Medical Necessity Statement*: Change iv to po diuresis, needs rate control for A fib, repeat CXR today, monitor respiratory status iv abx Coding Level of Care Code Acute Paleontology Teacher for Chg Fwd Diagnoses Pulmonary embolism I26.93 Pulmonary embolism type: single subsegmental (without acute cor pulmonale) Lung mass R91.8 Hypoxia R09.02 Diabetes E11.65; Z79.4 Diabetes mellitus type: type 2 Diabetes mellitus senior living insulin use: with long term care pharmacist use Diabetes mellitus complication status: with hyperglycemia Hypertension I10 Hypertension type: essential hypertension Dementia F01.50 Dementia type: vascular dementia Dementia behavioral disturbance: without behavioral disturbance CHF (congestive heart failure) I50.33 Heart failure type: diastolic Heart failure chronicity: acute on chronic Atrial fibrillation with RVR I48.91
[2020-10-07] MEDS: trazodone 50 mg Tablet PO (19:26)
--- NOTE | 2020-10-07 19:37 | PC.NURSE ---
does of lasix and route change and missed dose telephone instructions to give one time dose of IVP lasix 40 mg now start PO in the am
[2020-10-07 20:42] LABS: Glucose Point of Care 317 mg/dL (70-110)
--- NOTE | 2020-10-07 20:45 | PC.NURSE ---
Bowman was removed today during day shift. Patient attempted to void via urinal, bedside commode, and toilet. Patient was unable to void. Patient's abdomen is distended. Patient c/o constipation and is asking for a suppository. Bladder scan shows 700. Ordered to do straight cath x1. Ordered to give suppository x1. Patient did well getting up to bedside commode with 2 assist. Patient went to toilet with 2 assist and walker and did not tolerate well. Patient was very heavy assist.
[2020-10-07] MEDS: glycerin adult supp 1 EACH PR (22:16)
--- NOTE | 2020-10-07 22:37 | PC.NURSE ---
Straight cath performed. 650 ml urine returned. Patient stated he still felt like he needed to go. Bladder scan now shows 78 ml.
[2020-10-08] VITALS (10 sets, daily range): BP systolic 113–134; BP diastolic 62–71; PULSE 83–107; RESP 15–18; TEMP 36.4–36.8; O2SAT 90–95
[2020-10-08] MEDS: dilTIAZem 60 mg Tablet PO ×5 (01:02→23:22)
[2020-10-08] MEDS: piperacillin-tazobactam 3.375 GM in sodium chloride 0.9% (plus) 50 ML IV ×3 (02:18→20:32)
[2020-10-08] MEDS: HYDROcodone-acetaminophen 5-325 mg Tablet 1 TAB PO ×3 (02:21→23:21)
[2020-10-08] MEDS: guaiFENesin-dextromethorphan UDC 10 mL 5 ML PO (02:21)
--- NOTE | 2020-10-08 05:04 | PC.NURSE ---
Patient was in A-fib at 1900. At 2200, patient was in SR.
[2020-10-08 05:42] LABS: Basophils # 0.1 10^3/uL (0.0-0.1); Basophils % 0.4 %; Eosinophils # 0.2 10^3/uL (0.0-0.8); Eosinophils % 1.6 %; Hematocrit 38.4 % (42.0-52.0); Hemoglobin 12.2 g/dL (11.7-16.6); Lymphocytes # 1.1 10^3/uL (0.8-4.8); Lymphocytes % 8.3 %; Mean Corpuscular HGB Conc 31.8 g/dL (30.0-36.0); Mean Platelet Volume 10.3 fL (7.4-10.4); Monocytes # 1.4 10^3/uL (0.2-0.9); Monocytes % 10.7 %; Neutrophils # 10.09 10^3/uL (1.8-7.7); Neutrophils % 78.5 %; Nucleated Red Blood Cells % 0 %; Platelet Count 204 10^3/cmm (130-400); Red Blood Count 4.52 10^6/uL (4.1-5.3); Red Cell Distribution Width 14.2 % (12.1-15.1); White Blood Count 12.9 10^3/uL (4.0-10.0)
[2020-10-08 05:55] LABS: Alanine Aminotransferase 15 U/L (0-41); Albumin Level 2.6 g/dL (3.5-5.2); Alkaline Phosphatase 48 IU/L (40-130); Anion Gap 12.5 (5-19); Aspartate Amino Transferase 14 U/L (0-40); Blood Urea Nitrogen 27 mg/dL (8-23); Calcium 8.3 mg/dL (8.5-10.5); Carbon Dioxide 35 mmol/L (22-29); Chloride 89 mmol/L (98-107); Globulin 3.4 g/dL (1.3-4.6); Glucose 228 mg/dL (65-115); Osmolality Calculated 288 mOsm/kg (285-295); Potassium 3.5 mmol/L (3.5-5.1); Sodium 133 mmol/L (136-145); Total Bilirubin 0.6 mg/dL (0.15-1.2)
[2020-10-08 06:37] LABS: Glucose Point of Care 234 mg/dL (70-110)
[2020-10-08] MEDS: gabapentin 300 mg Capsule 600 MG PO ×3 (07:50→20:36)
[2020-10-08] MEDS: atorvastatin 40 mg Tablet 80 MG PO (07:50)
[2020-10-08] MEDS: FUROsemide 40 mg Tablet 60 MG PO ×2 (07:50→16:06)
[2020-10-08] MEDS: isosorbide mononitrate ER 30 mg Tablet PO ×2 (07:50→20:36)
[2020-10-08] MEDS: pantoprazole DR 40 mg Tablet PO (07:51)
[2020-10-08] MEDS: aspirin 81 mg EC Tablet PO (07:51)
[2020-10-08] MEDS: tamsulosin 0.4 mg Capsule PO (07:51)
[2020-10-08] MEDS: escitalopram 10 mg Tablet PO (07:51)
[2020-10-08] MEDS: finasteride 5 mg Tablet PO (07:51)
[2020-10-08] MEDS: amiodarone 200 mg Tablet 400 MG PO ×2 (08:35→17:33)
[2020-10-08] MEDS: vancomycin 1,250 MG/250 ML PIGGYBACK 250 MG IV (08:38)
--- NOTE | 2020-10-08 08:51 | PC.NUTR ---
Nutritional assessment: Pt assessed for 5 day LOS. Noted poc glucose over past 24 hours ranging 239-361. Potential benefit of adding Consistent Carbohydrate to diet given elevated blood sugars. However, given pt age, 57% average po intakes, and current Cardiac restrictions, further restriction may negatively impact po intakes and overall nutrition. See RD assessment for further details.
--- NOTE | 2020-10-08 09:07 | PC.NURSE ---
patient reporting the urge to void and not being able to patient has not voided on his own since vásquez removal yesterday reported events to Dr Sepulveda instructions to straight cath report back if patient is unable to void on his own at noon
[2020-10-08] MEDS: enoxaparin 80 mg/0.8 mL Syringe SUBCUT (11:15)
--- NOTE | 2020-10-08 11:16 | P.PN_ITS ---
Subjective Subjective: Interval history: Urinary retention noted this morning placement of straight cath resulted in 1000 mL of urine, Bowman placed subsequently afterwards. Heart rate is better controlled today. Chest pain additionally better. Medications: Reviewed: Yes Vitals/I&O/Wt Last Vital Signs Temp 98.2 F 10/08/20 07:26 Pulse 91 10/08/20 10:41 Resp 18 10/08/20 10:41 BP 134/70 10/08/20 07:26 Pulse Ox 95 10/08/20 10:41 10/07/20 10/08/20 10/08/20 22:59 06:59 14:59 Intake Total 660 / 1130 400 / 1530 240 / 240 Output Total 950 / 2275 280 / 280 Balance -290 / -1145 400 / -745 -40 / -40 Physical Exam Narrative: EXAM NARRATIVE: GEN: Awake, alert CVS: S1S2 N RS: CTA B/L Abd: Soft, nt/nd , bs+ CRANE SERVICE TECHNICIAN: no focal neuro motor deficits Urinary Catheter Management^: Bowman: Cath Placed During This Visit: yes, but has since been removed by the nurse Reason for Continuing Indwelling Catheter: Accurate Measurement of Urinary Output in Critically Ill Patients Urinary Catheter Date of Insertion: 10/03/20 Urinary Catheter Time of Insertion: 12:29 Date Urinary Catheter Removed: 10/07/20 Time Urinary Catheter Discontinued: 15:07 Data : 10/08/20 05:03 10/08/20 05:03 Micro: Microbiology 10/06/20 13:00 Blood Culture - Preliminary Blood NEGATIVE TO DATE 10/06/20 13:05 Blood Culture - Preliminary Blood NEGATIVE TO DATE 10/06/20 12:50 MRSA Culture - Final Nose 10/05/20 16:47 Bacterial Antigens - Final Urine,Voided A&P Assessment and plan (1) Pulmonary embolism: Right-sided PE Transition to Eliquis in anticipation of discharge Status: Acute Qualifiers: Pulmonary embolism type: single subsegmental (without acute cor pulmonale) Qualified Code(s): I26.93 - Single subsegmental pulmonary embolism without acute cor pulmonale (2) Lung mass: CTA of the chest also mentions a lingular mass with hilar and mediastinal lymphadenopathy concerning for malignancy. Pulmonary consult appreciated Plan to continue iv abx and diuresis at this time, follow up serial CT in 2 weeks as outpatient, if mass appears to be improving less likely to be malignancy. Unable to obtain prior imaging from [facility]. Cannot exclude pneumonia at this time, including possibility of aspiration, started zosyn empirically. Added vanocmyicn on 10/07 given falling 02 saturation, MRSA PCR now retuirned negative, D/c vancomycin Total abx day 5 today. Appreciate swallow evaluation, Diet changed to dysphagia 3 Afberile, procal negative however still with persisting leukocytosis , added vancomycin Continue supplemental oxygen to keep O2 sat greater than 92% DuoNeb every 4 hours as needed Status: Acute (3) Hypoxia: Multifactorial related to pulmonary embolism, lung mass, pulmonary edema likely as a result of known history of CHF, unknown last ejection fraction. Gr 2 diastolic dysfucntion on echocardiogram. Status: Acute (4) Diabetes: insulin sliding scale Status: Acute Qualifiers: Diabetes mellitus type: type 2 Diabetes mellitus assistant terminal manager insulin use: with assistant terminal manager use Diabetes mellitus complication status: with hyperglycemia Qualified Code(s): E11.65 - Type 2 diabetes mellitus with hyperglycemia; Z79.4 - superintendent container terminal (current) use of insulin (5) Hypertension: currently well controlled Status: Acute Qualifiers: Hypertension type: essential hypertension Qualified Code(s): I10 - Essential (primary) hypertension (6) Dementia: advanced Status: Acute Qualifiers: Dementia type: vascular dementia Dementia behavioral disturbance: without behavioral disturbance Qualified Code(s): F01.50 - Vascular dementia without behavioral disturbance (7) CHF (congestive heart failure): Acute on chronic diastolic CHF exacerbation On lasix 60mg po BID Removed Bowman however now with urinary retention renal function stable net negative 6L since admission Status: Acute Qualifiers: Heart failure type: diastolic Heart failure chronicity: acute on chronic Qualified Code(s): I50.33 - Acute on chronic diastolic (congestive) heart failure (8) Atrial fibrillation with RVR: unclear chronicity Currently rate controlled with amiodarone 400mg BID and cardizem 60mg po q6h already on a/c for PE Status: Acute Additional A&P Information DVT ppx: on eliquis now DNR/DNI Dispo: significant deconditioning, restricted mobility, will benefit from skilled therapy Attestations Medical Necessity Statement*: transition lovenox to oral eliquis today,d/c va ncomycin and monitor closely , need to replace Bowman due to urinary retention Coding Level of Care Code Acute Customer Quality Engineer for Chg Fwd Diagnoses Pulmonary embolism I26.93 Pulmonary embolism type: single subsegmental (without acute cor pulmonale) Lung mass R91.8 Hypoxia R09.02 Diabetes E11.65; Z79.4 Diabetes mellitus type: type 2 Diabetes mellitus residential insulin use: with assistant terminal manager use Diabetes mellitus complication status: with hyperglycemia Hypertension I10 Hypertension type: essential hypertension Dementia F01.50 Dementia type: vascular dementia Dementia behavioral disturbance: without behavioral disturbance CHF (congestive heart failure) I50.33 Heart failure type: diastolic Heart failure chronicity: acute on chronic Atrial fibrillation with RVR I48.91
[2020-10-08 11:33] LABS: Glucose Point of Care 319 mg/dL (70-110)
--- NOTE | 2020-10-08 13:30 | PC.NURSE ---
patient continues to have issues to void Instructions from Dr brambila if patient has not voided by 1300 replace vásquez patient has been up to bedside commode has only been able to void approx. 25 mls Bladder scan performed >999ml in bladder vásquez placed.
--- NOTE | 2020-10-08 15:32 | DCPLANNER ---
Pg 2 of IM updated and reviewed with pt. No questions, copy provided.
[2020-10-08 16:18] LABS: Glucose Point of Care 329 mg/dL (70-110)
--- NOTE | 2020-10-08 18:31 | XRR_ITS ---
PROCEDURE INFORMATION: Exam: XR Abdomen Exam date and time: 10/08/2020 7:14 PM Age: 85 years old Clinical indication: Condition or disease; Intestinal condition; Other: Ileus TECHNIQUE: Imaging protocol: XR of the abdomen. Views: Frontal supine view of the abdomen. 1 View. COMPARISON: No relevant prior studies available. FINDINGS: Gastrointestinal tract: No dilated small bowel loops identified to suggest small bowel obstruction. Moderate dilation of the transverse colon, compatible with ileus. Bones/joints: Mild degenerative changes of the lumbar spine. XR/XR abdomen 1V* [id number] IMPRESSION: 1. Moderate dilation of the transverse colon, compatible with ileus.
[2020-10-08 20:28] LABS: Glucose Point of Care 319 mg/dL (70-110)
[2020-10-08] MEDS: polyethylene glycol 3350 Pkt 17 gm PO (20:33)
[2020-10-08] MEDS: trazodone 50 mg Tablet PO (20:36)
[2020-10-08] MEDS: apixaban 5 mg Tablet 10 MG PO (20:44)
[2020-10-09] VITALS (14 sets, daily range): BP systolic 96–136; BP diastolic 62–84; PULSE 73–122; RESP 14–22; TEMP 36.6–37.2; O2SAT 90–99
[2020-10-09] MEDS: piperacillin-tazobactam 3.375 GM in sodium chloride 0.9% (plus) 50 ML IV ×2 (03:30→10:58)
[2020-10-09] MEDS: dilTIAZem 60 mg Tablet PO ×2 (05:53→12:02)
[2020-10-09] MEDS: HYDROcodone-acetaminophen 5-325 mg Tablet 1 TAB PO ×3 (05:53→22:35)
[2020-10-09 06:42] LABS: Glucose Point of Care 243 mg/dL (70-110)
[2020-10-09] MEDS: atorvastatin 40 mg Tablet 80 MG PO (08:09)
[2020-10-09] MEDS: amiodarone 200 mg Tablet 400 MG PO ×2 (08:10→17:56)
[2020-10-09] MEDS: apixaban 5 mg Tablet 10 MG PO (08:10)
[2020-10-09] MEDS: FUROsemide 40 mg Tablet 60 MG PO ×2 (08:10→15:32)
[2020-10-09] MEDS: tamsulosin 0.4 mg Capsule PO (08:11)
[2020-10-09] MEDS: aspirin 81 mg EC Tablet PO (08:11)
[2020-10-09] MEDS: sennosides-docusate Tablet 1 TAB PO ×2 (08:12→17:56)
[2020-10-09] MEDS: finasteride 5 mg Tablet PO (08:12)
[2020-10-09] MEDS: pantoprazole DR 40 mg Tablet PO (08:12)
[2020-10-09] MEDS: isosorbide mononitrate ER 30 mg Tablet PO ×2 (08:12→20:49)
[2020-10-09] MEDS: polyethylene glycol 3350 Pkt 17 gm PO (08:13)
[2020-10-09] MEDS: ipratropium-albuterol 3 mL Neb INHALATION ×2 (08:31→15:18)
[2020-10-09] MEDS: gabapentin 300 mg Capsule 600 MG PO ×3 (08:50→20:49)
[2020-10-09] MEDS: escitalopram 10 mg Tablet PO (08:50)
[2020-10-09] MEDS: bisacodyl 10 mg Supp PR (10:53)
[2020-10-09 11:26] LABS: Glucose Point of Care 335 mg/dL (70-110)
--- NOTE | 2020-10-09 13:15 | PM.PN ---
Subjective Subjective: Interval history: Patient feels better today. Seen to be sitting up in chair since breakfast to afternoon. Chest pain is currently controlled. Heart rate is controlled additionally. Hemodynamically stable. Noted to have hematuria in the Bowman. Eliquis has been held. Diuresing well on oral Lasix. Fingersticks uncontrolled, running greater than 300 consistently, Lantus 15 units added for tonight. Medications: Reviewed: Yes Vitals/I&O/Wt Last Vital Signs Temp 97.8 F 10/09/20 11:17 Pulse 92 10/09/20 11:17 Resp 14 10/09/20 11:17 BP 135/84 10/09/20 11:17 Pulse Ox 90 10/09/20 11:17 10/08/20 10/09/20 10/09/20 22:59 06:59 14:59 Intake Total 170 / 900 850 / 1750 530 / 530 Output Total 500 / 1980 615 / 2595 Balance -330 / -1080 235 / -845 530 / 530 Physical Exam Narrative: EXAM NARRATIVE: GEN: Awake, alert , sitting in chair CVS: S1S2 N RS: CTA B/L Abd: Soft, nt/nd , bs+ OPERATIONS COORDINATOR: no focal neuro motor deficits Urinary Catheter Management^: Bowman: Cath Placed During This Visit: yes, but has since been removed by the nurse Reason for Continuing Indwelling Catheter: Acute Urinary Retention or Obstruction Urinary Catheter Date of Insertion: 10/08/20 Urinary Catheter Time of Insertion: 13:36 Date Urinary Catheter Removed: 10/07/20 Time Urinary Catheter Discontinued: 15:07 Data : 10/08/20 05:03 10/08/20 05:03 A&P Assessment and plan (1) Pulmonary embolism: Right-sided PE Transitioned to Eliquis on 10/08, however today noted to have hematuria therefore Eliquis has been placed on hold for now. Status: Acute Qualifiers: Pulmonary embolism type: single subsegmental (without acute cor pulmonale) Qualified Code(s): I26.93 - Single subsegmental pulmonary embolism without acute cor pulmonale (2) Lung mass: CTA of the chest also mentions a lingular mass with hilar and mediastinal lymphadenopathy concerning for malignancy. Pulmonary consult appreciated Patient has received an empiric 6-day course of Zosyn to cover for the possibility of pneumonia including aspiration pneumonia and has also been diuresed aggressively during this admission, follow up serial CT in 2 weeks as outpatient, if mass appears to be improving less likely to be malignancy. [facility] to [facility]. Appreciate swallow evaluation, Diet changed to dysphagia 3 Patient has remained afebrile during the course of admission, pro-Miguel negative Continue supplemental oxygen to keep O2 sat greater than 92% DuoNeb every 4 hours as needed Status: Acute (3) Hypoxia: Multifactorial related to pulmonary embolism, lung mass, pulmonary edema likely as a result of known history of CHF, unknown last ejection fraction. Gr 2 diastolic dysfucntion on echocardiogram. Status: Acute (4) Diabetes: insulin sliding scale Status: Acute Qualifiers: Diabetes mellitus type: type 2 Diabetes mellitus longterm insulin use: with intermediate designer use Diabetes mellitus complication status: with hyperglycemia Qualified Code(s): E11.65 - Type 2 diabetes mellitus with hyperglycemia; Z79.4 - MCFP (current) use of insulin (5) Hypertension: currently well controlled Status: Acute Qualifiers: Hypertension type: essential hypertension Qualified Code(s): I10 - Essential (primary) hypertension (6) Dementia: advanced Status: Acute Qualifiers: Dementia type: vascular dementia Dementia behavioral disturbance: without behavioral disturbance Qualified Code(s): F01.50 - Vascular dementia without behavioral disturbance (7) CHF (congestive heart failure): Acute on chronic diastolic CHF exacerbation On lasix 60mg po BID, continues to diurese well renal function stable net negative 6.8L since admission Status: Acute Qualifiers: Heart failure type: diastolic Heart failure chronicity: acute on chronic Qualified Code(s): I50.33 - Acute on chronic diastolic (congestive) heart failure (8) Atrial fibrillation with RVR: unclear chronicity Currently rate controlled with amiodarone 400mg BID and cardizem 60mg po q6h already on a/c for PE, on hold today due to noted hematuria Status: Acute Additional A&P Information DVT ppx: on eliquis now DNR/DNI Dispo: significant deconditioning, restricted mobility, will benefit from skilled therapy Attestations Medical Necessity Statement*: Hematuria noted today in Shukri Bowman placed on hold, monitor closely over the next 24 hours, H&H in the morning. Coding Level of Care Code Acute Automotive Sales Representative for Stephen Cruz Diagnoses Pulmonary embolism I26.93 Pulmonary embolism type: single subsegmental (without acute cor pulmonale) Lung mass R91.8 Hypoxia R09.02 Diabetes E11.65; Z79.4 Diabetes mellitus type: type 2 Diabetes mellitus longterm insulin use: with longterm use Diabetes mellitus complication status: with hyperglycemia Hypertension I10 Hypertension type: essential hypertension Dementia F01.50 Dementia type: vascular dementia Dementia behavioral disturbance: without behavioral disturbance CHF (congestive heart failure) I50.33 Heart failure type: diastolic Heart failure chronicity: acute on chronic Atrial fibrillation with RVR I48.91
--- NOTE | 2020-10-09 13:23 | ECG_ITS ---
[facility] Test Date: 2020-10-09 Pat Name: Michael Meyers Department: Room: 107 Gender: Male Barbering Instructor: : 1935 Requested By: Kyara Sepulveda Order Number: [id number] Mónica MD: Eveline Paige M.D. Measurements Intervals [place] Rate: 120 P: NE: QRS: 52 QRSD: 134 T: 237 QT: 398 QTc: 563 Interpretive Statements ATRIAL FIBRILLATION WITH RAPID VENTRICULAR RESPONSE INTRAVENTRICULAR CONDUCTION DELAY [130+ ms QRS DURATION] POSSIBLE LEFT VENTRICULAR HYPERTROPHY [VOLTAGE CRITERIA PLUS LAE OR QRS WIDENING] Compared to ECG 10/05/2020 20:14:49 Intraventricular conduction delay now present Atrial flutter no longer present Ventricular premature complex(es) no longer present Aberrant conduction of supraventricular beat(s) no longer present ST (T wave) deviation no longer present Myocardial infarct finding no longer present Electronically Signed On 10-10-2020 11:44:32 CDT by Eveline Paige M.D. [id number]
--- NOTE | 2020-10-09 13:30 | PC.NURSE ---
Patient reports sternal pain with a heart rate of 120's. ECG ordered and doctor notified. EKG showed Atrial fib with RVR. Patient given hydrocodone which brought the pain down to a 5/10.
[2020-10-09] MEDS: dilTIAZem ER (24HR) 240 mg Capsule PO (15:30)
--- NOTE | 2020-10-09 15:30 | PC.NURSE ---
Patients heart rate continues to be in the 120's. Doctor notified and received orders to give PO Cardizem once now. Nurse will continue to monitor. Patient also has hematuria, Eliquis has been placed on hold.
[2020-10-09 16:32] LABS: Glucose Point of Care 318 mg/dL (70-110)
[2020-10-09] MEDS: metoprolol tartrate 1 mg/1 mL SDV 5 mL 5 MG IV (18:36)
--- NOTE | 2020-10-09 19:20 | PC.NURSE ---
Patients rate still continues to be in the 120's. Doctor notified and ordered metoprolol 5mg IVP q4h PRN for heart rate greater than 120. Patients rate has improved to 90's, to low 100's. Patient does not have any pain currently.
[2020-10-09 20:41] LABS: Glucose Point of Care 322 mg/dL (70-110)
[2020-10-09] MEDS: insulin glargine 100 units/1 mL 15 UNIT SUBCUT (20:49)
[2020-10-09] MEDS: trazodone 50 mg Tablet PO (20:49)
[2020-10-10] VITALS (15 sets, daily range): BP systolic 108–135; BP diastolic 59–78; PULSE 86–112; RESP 14–18; TEMP 36.4–37.2; O2SAT 93–97
[2020-10-10 03:33] LABS: Glucose Point of Care 114 mg/dL (70-110)
--- NOTE | 2020-10-10 03:39 | ECG_ITS ---
[facility] Test Date: 2020-10-10 Pat Name: Michael Meyers Department: Room: 107 Gender: Male Argon Tester: : 1935 Requested By: Mack Albert Order Number: [id number] Mónica MD: Eveline Paige M.D. Measurements Intervals [place] Rate: 95 P: 22 [place]: 146 QRS: 51 QRSD: 139 T: 215 QT: 422 QTc: 532 Interpretive Statements SINUS RHYTHM WITH FREQUENT VENTRICULAR PREMATURE COMPLEXES WITH OCCASIONAL SUPRAVENTRICULAR PREMATURE COMPLEXES POSSIBLE LEFT ATRIAL ENLARGEMENT [-0.1mV P WAVE IN V1/V2] INTRAVENTRICULAR CONDUCTION DELAY [130+ ms QRS DURATION] LEFT VENTRICULAR HYPERTROPHY AND ST-T CHANGE [VOLTAGE CRITERIA PLUS ST/T ABNORMALITY] Compared to ECG 10/09/2020 13:44:34 Ventricular premature complex(es) now present ST (T wave) deviation now present Atrial fibrillation no longer present Electronically Signed On 10-10-2020 11:41:05 CDT by Eveline Paige M.D. [id number]
[2020-10-10 03:59] LABS: ABG PCO2 50.4 mmHg (35-45); ABG PH Result 7.51 (7.35-7.45); Alveolar-Arterial Oxygen Gradi 16.2 mmHg (5-10); Arterial Blood Gas Hematocrit 38.2 % (42-52); Base Excess ABG 15.3 mmol/L (-2.0-2.0); Blood Gas Allen Test Pos; Blood Gas Sample Site Radial, right; Blood Gas Sample Type Arterial; Carboxyhemoglobin 0.4 %THgb (0.4-20.1); HCO3 ABG 40.5 mmol/L (22-26); HGB O2 Sat 92.1 % (95-100); Ionized Calcium Level - ABG 1.2 mmol/L (1.1-1.4); Methemoglobin 0.7 % (0.4-1.5); Oxygen Device NC; Oxygen Saturation ABG 93.1; PO2 ABG 66.5 mmHg (80.0-100.0); Total Hemoglobin 12.5 g/dL (14-18)
[2020-10-10 04:39] LABS: Basophils % 0.2 %; Eosinophils # 0.1 10^3/uL (0.0-0.8); Hematocrit 37.3 % (42.0-52.0); Hemoglobin 11.9 g/dL (11.7-16.6); Lymphocytes # 1.2 10^3/uL (0.8-4.8); Lymphocytes % 9.3 %; Mean Corpuscular HGB Conc 31.9 g/dL (30.0-36.0); Mean Corpuscular Hemoglobin 26.7 pg (28.0-34.0); Mean Corpuscular Volume 83.8 fL (80-94); Mean Platelet Volume 10.3 fL (7.4-10.4); Monocytes # 1.4 10^3/uL (0.2-0.9); Monocytes % 10.8 %; Neutrophils # 10.28 10^3/uL (1.8-7.7); Neutrophils % 78.2 %; Nucleated Red Blood Cells % 0 %; Platelet Count 202 10^3/cmm (130-400); Red Blood Count 4.45 10^6/uL (4.1-5.3); Red Cell Distribution Width 13.9 % (12.1-15.1); White Blood Count 13.2 10^3/uL (4.0-10.0)
--- NOTE | 2020-10-10 04:41 | PC.NURSE ---
phlebotimist unable to wake pt for lab draw, nursing staff attempted to wake pt with sternal rub and was unsuccessful, Dr Albert assessed pt at bedside, pt did awaken with Dr Albert at bedside, abg and ekg ordered
[2020-10-10 05:12] LABS: Alanine Aminotransferase 19 U/L (0-41); Albumin Level 2.4 g/dL (3.5-5.2); Alkaline Phosphatase 57 IU/L (40-130); Anion Gap 11.3 (5-19); Aspartate Amino Transferase 24 U/L (0-40); Blood Urea Nitrogen 22 mg/dL (8-23); Carbon Dioxide 38 mmol/L (22-29); Chloride 89 mmol/L (98-107); Globulin 3.5 g/dL (1.3-4.6); Glucose 106 mg/dL (65-115); Osmolality Calculated 284 mOsm/kg (285-295); Potassium 3.3 mmol/L (3.5-5.1); Sodium 135 mmol/L (136-145); Total Bilirubin 0.5 mg/dL (0.15-1.2); Total Protein 5.9 g/dL (6.6-8.7)
[2020-10-10 07:01] LABS: Glucose Point of Care 190 mg/dL (70-110)
[2020-10-10] MEDS: HYDROcodone-acetaminophen 5-325 mg Tablet 1 TAB PO ×3 (07:31→23:15)
[2020-10-10] MEDS: ipratropium-albuterol 3 mL Neb INHALATION (07:35)
[2020-10-10] MEDS: tamsulosin 0.4 mg Capsule PO (08:04)
[2020-10-10] MEDS: finasteride 5 mg Tablet PO (08:04)
[2020-10-10] MEDS: atorvastatin 40 mg Tablet PO (08:04)
[2020-10-10] MEDS: gabapentin 300 mg Capsule 600 MG PO ×3 (08:04→19:11)
[2020-10-10] MEDS: aspirin 81 mg EC Tablet PO (08:04)
[2020-10-10] MEDS: FUROsemide 40 mg Tablet 60 MG PO ×2 (08:04→15:58)
[2020-10-10] MEDS: pantoprazole DR 40 mg Tablet PO (08:04)
[2020-10-10] MEDS: sennosides-docusate Tablet 1 TAB PO ×2 (08:04→17:27)
[2020-10-10] MEDS: dilTIAZem ER (24HR) 240 mg Capsule PO (08:04)
[2020-10-10] MEDS: escitalopram 10 mg Tablet PO (08:05)
[2020-10-10] MEDS: amiodarone 200 mg Tablet 400 MG PO ×2 (08:05→17:27)
--- NOTE | 2020-10-10 08:54 | DCPLANNER ---
Pg 2 of IM updated and reviewed with pt. No questions, copy provided.
[2020-10-10] MEDS: isosorbide mononitrate ER 30 mg Tablet PO ×2 (09:18→19:11)
[2020-10-10] MEDS: polyethylene glycol 3350 Pkt 17 gm PO (09:19)
[2020-10-10 11:41] LABS: Glucose Point of Care 222 mg/dL (70-110)
--- NOTE | 2020-10-10 15:23 | XRR_ITS ---
PROCEDURE INFORMATION: Exam: XR Abdomen Exam date and time: 10/10/2020 3:57 PM Age: 85 years old Clinical indication: Abdominal pain; Additional info: Follow up ileus TECHNIQUE: Imaging protocol: XR of the abdomen. Views: Frontal supine view of the abdomen. 1 View. COMPARISON: CR XR abdomen 1V* [id number] 10/08/2020 7:10 PM FINDINGS: Gastrointestinal tract: Gas-filled small bowel loops and colon throughout the abdomen and pelvis. Bones/joints: Mild degenerative spine changes. XR/XR abdomen 1V* [id number] IMPRESSION: Gas-filled small bowel loops and colon throughout the abdomen and pelvis. The bowel gas pattern is suggestive of ileus, and is unchanged from 10/08/2020.
--- NOTE | 2020-10-10 15:23 | XRR_ITS ---
PROCEDURE INFORMATION: Exam: XR Chest Exam date and time: 10/10/2020 3:58 PM Age: 85 years old Clinical indication: Shortness of breath; Additional info: Follow up infiltrates TECHNIQUE: Imaging protocol: XR of the chest. Views: 1 view. COMPARISON: CR XR chest 1V portable [id number] 10/07/2020 11:09 AM FINDINGS: Lungs: Bilateral interstitial lung disease, which may represent pulmonary edema versus infection versus fibrosis. Mild airspace disease at the left lung base. Known left lung mass, seen on CT of 10/03/2020, is not well demonstrated on this examination. Pleural spaces: Small left pleural effusion. No pneumothorax. 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 Mild cardiomegaly is noted. Bones/joints: Median sternotomy noted. XR/XR chest 1V portable [id number] IMPRESSION: 1. Mild cardiomegaly is noted. 2. Bilateral interstitial lung disease, which may represent pulmonary edema versus infection versus fibrosis. Mild airspace disease at the left lung base. This is unchanged from 10/07/2020. 3. Known left lung mass, seen on CT of 10/03/2020, is not well demonstrated on this examination. 4. Small left pleural effusion.
--- NOTE | 2020-10-10 15:29 | PM.PN ---
Subjective Subjective: Interval history: No new complaints today, had 1 BM yesterday after being given suppository, tolerating p.o. intake, no nausea vomiting. Participated with physical therapy today. White blood cell count ranging at the 13 Tom, hypokalemia 3.3. Developing metabolic alkalosis on ABG, bicarb up to 38. Medications: Reviewed: Yes Vitals/I&O/Wt Last Vital Signs Temp 98.9 F 10/10/20 12:00 Pulse 86 10/10/20 14:00 Resp 15 10/10/20 12:00 BP 125/71 10/10/20 12:00 Pulse Ox 95 10/10/20 12:00 10/10/20 10/10/20 10/10/20 06:59 14:59 22:59 Intake Total 232 / 232 Output Total 400 / 2250 450 / 450 Balance -400 / -370 -218 / -218 Physical Exam Narrative: EXAM NARRATIVE: GEN: Awake, lying comfortably in bed at this time CVS: S1S2 N RS: CTA B/L Abd: Soft, mildly distended, bowel sounds sluggish CAN HANDLER: no focal neuro motor deficits Extremities lower extremity pitting edema Urinary Catheter Management^: Bowman: Cath Placed During This Visit: yes, but has since been removed by the nurse Reason for Continuing Indwelling Catheter: Not indwelling catheter Urinary Catheter Date of Insertion: 10/08/20 Urinary Catheter Time of Insertion: 13:36 Date Urinary Catheter Removed: 10/07/20 Time Urinary Catheter Discontinued: 15:07 Data : 10/10/20 03:28 10/10/20 03:28 A&P Assessment and plan (1) Pulmonary embolism: Right-sided PE Transitioned to Eliquis on 10/08, however today noted to have hematuria therefore Eliquis has been placed on hold for now until urine starts to clear, will likely resume on 5 mg p.o. twice daily No evidence of PE Status: Acute Qualifiers: Pulmonary embolism type: single subsegmental (without acute cor pulmonale) Qualified Code(s): I26.93 - Single subsegmental pulmonary embolism without acute cor pulmonale (2) Lung mass: CTA of the chest also mentions a lingular mass with hilar and mediastinal lymphadenopathy concerning for malignancy. Pulmonary consult appreciated Patient has received an empiric 6-day course of Zosyn to cover for the possibility of pneumonia including aspiration pneumonia and has also been diuresed aggressively during this admission, follow up serial CT in 2 weeks as outpatient, if mass appears to be improving less likely to be malignancy. Unable to obtain prior imaging from [facility]. Empiric vancomycin was discontinued after MRSA PCR returned negative. Urine Legionella antigen negative. Haemophilus influenza antigen and originally reported positive from the urine, resolved thereafter corrected to be negative. Appreciate swallow evaluation, Diet changed to dysphagia 3 Patient has remained afebrile during the course of admission, pro-Miguel negative Continue supplemental oxygen to keep O2 sat greater than 92% Leukocytosis persisting at 13, however patient is clinically improving, oxygen requirement stable at 3 L/min, he remains afebrile and hemodynamically stable. Now also working with PT, chest pain is improved. Interval x-ray on October 07 showed improving bilateral infiltrates. Repeat chest x-ray today given persisting leukocytosis monitor for interval development of any empyema. DuoNeb every 4 hours as needed Status: Acute (3) Hypoxia: Multifactorial related to pulmonary embolism, lung mass, pulmonary edema likely as a result of known history of CHF, unknown last ejection fraction. Gr 2 diastolic dysfucntion on echocardiogram. Status: Acute (4) Diabetes: insulin sliding scale Status: Acute Qualifiers: Diabetes mellitus type: type 2 Diabetes mellitus middle or intermediate school principal insulin use: with chcf use Diabetes mellitus complication status: with hyperglycemia Qualified Code(s): E11.65 - Type 2 diabetes mellitus with hyperglycemia; Z79.4 - middle or intermediate school principal (current) use of insulin (5) Hypertension: currently well controlled Status: Acute Qualifiers: Hypertension type: essential hypertension Qualified Code(s): I10 - Essential (primary) hypertension (6) Dementia: advanced Status: Acute Qualifiers: Dementia type: vascular dementia Dementia behavioral disturbance: without behavioral disturbance Qualified Code(s): F01.50 - Vascular dementia without behavioral disturbance (7) CHF (congestive heart failure): Acute on chronic diastolic CHF exacerbation On lasix 60mg po BID, continues to diurese well, net -7.9 L since admission renal function stable Noted to be developing metabolic alkalosis on labs, slightly increased edema after switching IV to p.o. Lasix. We will give him additional dose of Diamox today, reassess volume status tomorrow morning. Status: Acute Qualifiers: Heart failure type: diastolic Heart failure chronicity: acute on chronic Qualified Code(s): I50.33 - Acute on chronic diastolic (congestive) heart failure (8) Atrial fibrillation with RVR: unclear chronicity Currently rate controlled with amiodarone 400mg BID and cardizem, increased dose of Cardizem to 300 mg extended release daily as still with intermittent runs of A. fib. already on a/c for PE, on hold today due to noted hematuria Status: Acute (9) Ileus: clinically improving, abdomen less distended, patient had large BM yesterday, tolerating po intake Rpt X ray abdomen to follow up Status: Acute Additional A&P Information DVT ppx: on eliquis DNR/DNI Dispo: significant deconditioning, restricted mobility, will benefit from skilled therapy Attestations Medical Necessity Statement*: additional diuretics today , X ray chest and abdomen for interval follow up, hematuria, holding anticoagulation for PE for now Coding Level of Care Code Acute Parachute Folder for [facility] Fwd Diagnoses Pulmonary embolism I26.93 Pulmonary embolism type: single subsegmental (without acute cor pulmonale) Lung mass R91.8 Hypoxia R09.02 Diabetes E11.65; Z79.4 Diabetes mellitus type: type 2 Diabetes mellitus middle or intermediate school principal insulin use: with middle or intermediate school principal use Diabetes mellitus complication status: with hyperglycemia Hypertension I10 Hypertension type: essential hypertension Dementia F01.50 Dementia type: vascular dementia Dementia behavioral disturbance: without behavioral disturbance CHF (congestive heart failure) I50.33 Heart failure type: diastolic Heart failure chronicity: acute on chronic Atrial fibrillation with RVR I48.91 Ileus K56.7
[2020-10-10] MEDS: acetaZOLAMIDE 250 mg Tablet PO (15:58)
[2020-10-10] MEDS: potassium chloride ER 20 mEq Tablet 40 MEQ PO (15:58)
[2020-10-10 16:53] LABS: Glucose Point of Care 233 mg/dL (70-110)
[2020-10-10] MEDS: trazodone 50 mg Tablet PO (19:11)
[2020-10-10] MEDS: morphine 4 mg/mL SDV 1 mL 2 MG IVP ×2 (19:11→23:15)
[2020-10-10 20:04] LABS: Glucose Point of Care 268 mg/dL (70-110)
[2020-10-10] MEDS: insulin glargine 100 units/1 mL 15 UNIT SUBCUT (20:11)
[2020-10-10] MEDS: guaiFENesin-dextromethorphan UDC 10 mL 5 ML PO (21:38)
[2020-10-11] VITALS (16 sets, daily range): BP systolic 92–129; BP diastolic 60–81; PULSE 73–119; RESP 11–15; TEMP 36.3–36.7; O2SAT 92–95
--- NOTE | 2020-10-11 00:44 | PC.NURSE ---
Patient is currently resting in bed with eyes closed. Will monitor.
--- NOTE | 2020-10-11 01:38 | PC.NURSE ---
Dr. Albert notified of patient screaming in pain. PRN [place] and Morphine is not due again until 0300. Ordered to give Dilaudid 1 mg x1.
[2020-10-11] MEDS: HYDROmorphone 1 mg/mL INJ 1 mL IVP (01:44)
--- NOTE | 2020-10-11 03:34 | PC.NURSE ---
Patient is currently resting with eyes closed. Patient is lethargic, arousable with sternal rub. Patient was asked if he is in any pain and stated no. Patient was coughing and able to clear his own airway. VSS. Oxygen saturation 92 percent on 4 L NC. Will monitor.
--- NOTE | 2020-10-11 04:12 | PC.NURSE ---
Patient's heart rate has ranged from 90s-120s throughout night. Patient's heart rate has not MAINTAINED greater than 120.
[2020-10-11 04:26] LABS: Alanine Aminotransferase 23 U/L (0-41); Albumin Level 2.6 g/dL (3.5-5.2); Alkaline Phosphatase 55 IU/L (40-130); Aspartate Amino Transferase 28 U/L (0-40); Blood Urea Nitrogen 24 mg/dL (8-23); Calcium 8.3 mg/dL (8.5-10.5); Carbon Dioxide 35 mmol/L (22-29); Chloride 91 mmol/L (98-107); Globulin 3.6 g/dL (1.3-4.6); Glucose 134 mg/dL (65-115); Osmolality Calculated 288 mOsm/kg (285-295); Sodium 136 mmol/L (136-145); Total Bilirubin 0.6 mg/dL (0.15-1.2); Total Protein 6.2 g/dL (6.6-8.7)
[2020-10-11 04:27] LABS: Anion Gap 13.6 (5-19); Potassium 3.6 mmol/L (3.5-5.1)
--- NOTE | 2020-10-11 05:56 | PC.NURSE ---
Patient has been in A-fib all shift. Patient is currently in sinus rhythm with a heart rate of 90.
--- NOTE | 2020-10-11 06:05 | PC.NURSE ---
Patient is responding to verbal at this time. Patient was asked how he is feeling and he states, okay.
[2020-10-11 06:07] LABS: Glucose Point of Care 171 mg/dL (70-110)
[2020-10-11] MEDS: polyethylene glycol 3350 Pkt 17 gm PO (08:05)
[2020-10-11] MEDS: aspirin 81 mg EC Tablet PO (08:06)
[2020-10-11] MEDS: gabapentin 300 mg Capsule 600 MG PO ×3 (08:06→20:58)
[2020-10-11] MEDS: HYDROcodone-acetaminophen 5-325 mg Tablet 1 TAB PO ×3 (08:06→23:04)
[2020-10-11] MEDS: pantoprazole DR 40 mg Tablet PO (08:06)
[2020-10-11] MEDS: FUROsemide 40 mg Tablet 60 MG PO ×2 (08:07→16:47)
[2020-10-11] MEDS: amiodarone 200 mg Tablet 400 MG PO ×2 (08:07→17:22)
[2020-10-11] MEDS: atorvastatin 40 mg Tablet PO (08:07)
[2020-10-11] MEDS: finasteride 5 mg Tablet PO (08:07)
[2020-10-11] MEDS: sennosides-docusate Tablet 1 TAB PO ×2 (08:07→17:22)
[2020-10-11] MEDS: isosorbide mononitrate ER 30 mg Tablet PO (08:07)
[2020-10-11] MEDS: dilTIAZem ER (24HR) 300 mg Capsule PO (08:07)
[2020-10-11] MEDS: escitalopram 10 mg Tablet PO (08:08)
[2020-10-11] MEDS: tamsulosin 0.4 mg Capsule PO (08:08)
[2020-10-11] MEDS: apixaban 5 mg Tablet PO ×2 (09:42→20:57)
[2020-10-11 11:38] LABS: Glucose Point of Care 232 mg/dL (70-110)
--- NOTE | 2020-10-11 12:22 | PM.PN ---
Subjective Subjective: Interval history: Patient was seen and examined this morning, continues to be lethargic, decreased p.o. intake, difficulty swallowing pills, distended abdomen, last BM on Sunday. He has remained afebrile, other vitals and labs have been reviewed. Medications: Reviewed: Yes Vitals/I&O/Wt Last Vital Signs Temp 98.1 F 10/11/20 03:25 Pulse 93 10/11/20 08:00 Resp 11 L 10/11/20 08:00 BP 127/67 10/11/20 08:00 Pulse Ox 94 10/11/20 08:00 10/10/20 10/11/20 10/11/20 22:59 06:59 14:59 Intake Total 100 / 332 200 / 532 420 / 420 Output Total 350 / 800 450 / 1250 Balance -250 / -468 -250 / -718 420 / 420 Physical Exam HENMT: COMMON NORMALS: normocephalic and atraumatic HEAD & SCALP: normocephalic and atraumatic Chest: CHEST: Yes Symmetrical chest wall rise Resp: COMMON NORMALS: normal respiratory effort EFFORT & INSPECTION: Yes symmetric chest movement OTHER: Bilateral basal crackles present Cardio: COMMON NORMALS: regular rate, regular rhythm, S1 normal heart sound present, S2 normal heart sound present, No gallops present (Cardio), No murmurs present (Cardio), No rub (Cardio) and Peripheral pulses 2+ throughout RATE: regular rate RHYTHM: regular rhythm HEART SOUNDS: S1 normal heart sound present and S2 normal heart sound present PERIPHERAL PULSES: Peripheral pulses 2+ throughout GI: COMMON NORMALS: Normal to inspection, nondistended, normoactive bowel sounds present, Soft to palpation, non-tender, No hepatosplenomegaly present and no masses AUSCULTATION: Yes normoactive bowel sounds PALPATION: Yes Soft to palpation and Yes No hepatosplenomegaly present RECTAL EXAM: Yes deferred Extremity: COMMON NORMALS: no clubbing, cyanosis or edema and no pedal edema Urinary Catheter Management^: Bowman: Cath Placed During This Visit: yes, but has since been removed by the nurse Reason for Continuing Indwelling Catheter: Acute Urinary Retention or Obstruction Urinary Catheter Date of Insertion: 10/08/20 Urinary Catheter Time of Insertion: 13:36 Date Urinary Catheter Removed: 10/07/20 Time Urinary Catheter Discontinued: 15:07 Data : 10/10/20 03:28 10/11/20 03:54 A&P Assessment and plan (1) Pulmonary embolism: Right-sided PE Transitioned to Eliquis on 10/08, however noted to have hematuria therefore Eliquis was placed on hold till 10/10. Eliquis was resumed on 5 mg q12 h daily on 10/11 Status: Acute Qualifiers: Pulmonary embolism type: single subsegmental (without acute cor pulmonale) Qualified Code(s): I26.93 - Single subsegmental pulmonary embolism without acute cor pulmonale (2) Lung mass: CTA of the chest also mentions a lingular mass with hilar and mediastinal lymphadenopathy concerning for malignancy. Pulmonary consult appreciated Patient has received an empiric 6-day course of Zosyn to cover for the possibility of pneumonia including aspiration pneumonia and has also been diuresed aggressively during this admission. Repeat C.T Chest without contrast done on 10/11 has shown persistent unchanged Lt lingular soft tissue mass and adenopathy. follow up serial CT in 2 weeks as outpatient, if mass appears to be improving less likely to be malignancy. Unable to obtain prior imaging from [facility]. Empiric vancomycin was discontinued after MRSA PCR returned negative. Urine Legionella antigen negative. Haemophilus influenza antigen and originally reported positive from the urine, resolved thereafter corrected to be negative. Appreciate swallow evaluation, Diet changed to dysphagia 3 Patient has remained afebrile during the course of admission, pro-Miguel negative Continue supplemental oxygen to keep O2 sat greater than 92% Leukocytosis persisting at 13, however patient is clinically improving, oxygen requirement stable at 3 L/min, he remains afebrile and hemodynamically stable. Now also working with PT, chest pain is improved. monitor for interval development of any empyema. DuoNeb every 4 hours as needed Status: Acute (3) Hypoxia: Multifactorial related to pulmonary embolism, lung mass, pulmonary edema likely as a result of known history of CHF, unknown last ejection fraction. Gr 2 diastolic dysfucntion on echocardiogram. Status: Acute (4) Diabetes: insulin sliding scale Status: Acute Qualifiers: Diabetes mellitus type: type 2 Diabetes mellitus long term care administrator insulin use: with long term care administrator use Diabetes mellitus complication status: with hyperglycemia Qualified Code(s): E11.65 - Type 2 diabetes mellitus with hyperglycemia; Z79.4 - shelter (current) use of insulin (5) Hypertension: currently well controlled Status: Acute Qualifiers: Hypertension type: essential hypertension Qualified Code(s): I10 - Essential (primary) hypertension (6) Dementia: advanced Status: Acute Qualifiers: Dementia type: vascular dementia Dementia behavioral disturbance: without behavioral disturbance Qualified Code(s): F01.50 - Vascular dementia without behavioral disturbance (7) CHF (congestive heart failure): Acute on chronic diastolic CHF exacerbation On lasix 60mg po BID, continues to diurese well, net -7.9 L since admission renal function stable Noted to be developing metabolic alkalosis on labs, slightly increased edema after switching IV to p.o. Lasix. We will give him additional dose of Diamox today, reassess volume status tomorrow morning. Status: Acute Qualifiers: Heart failure type: diastolic Heart failure chronicity: acute on chronic Qualified Code(s): I50.33 - Acute on chronic diastolic (congestive) heart failure (8) Atrial fibrillation with RVR: unclear chronicity Currently rate controlled with amiodarone 400mg BID and cardizem, increased dose of Cardizem to 300 mg extended release daily as still with intermittent runs of A. fib. already on a/c for PE, on hold today due to noted hematuria Status: Acute (9) Ileus: clinically improving, abdomen less distended, patient had large BM yesterday, tolerating po intake Rpt X ray abdomen to follow up Status: Acute Additional A&P Information DVT ppx: on eliquis DNR/DNI Dispo: significant deconditioning, restricted mobility, will benefit from skilled therapy Attestations Medical Necessity Statement*: Patient is to the hospital for management of acute PE, decompensated heart failure. Coding Level of Care Code Acute Vegetable Loader for [facility] Fwd Diagnoses Pulmonary embolism I26.93 Pulmonary embolism type: single subsegmental (without acute cor pulmonale) Lung mass R91.8 Hypoxia R09.02 Diabetes E11.65; Z79.4 Diabetes mellitus type: type 2 Diabetes mellitus long term care administrator insulin use: with long term care administrator use Diabetes mellitus complication status: with hyperglycemia Hypertension I10 Hypertension type: essential hypertension Dementia F01.50 Dementia type: vascular dementia Dementia behavioral disturbance: without behavioral disturbance CHF (congestive heart failure) I50.33 Heart failure type: diastolic Heart failure chronicity: acute on chronic Atrial fibrillation with RVR I48.91 Ileus K56.7
--- NOTE | 2020-10-11 14:13 | CT_ITS ---
WS: [id number] CT CHEST WITHOUT INTRAVENOUS CONTRAST HISTORY: Lingular mass evaluation TECHNIQUE: Contiguous 5 mm axial imaging performed on the thorax. Coronal and sagittal reformats are submitted. All CT scans at [facility] use at least one of these dose optimization techniq ues: automated exposure control; mA and/or kV adjustment per patient size (includes targeted exams wh ere dose is matched to clinical indication); or iterative reconstruction. CONTRAST: None DLP: 908.92 mGy.cm COMPARISON: 10/03/2020 Lungs and central airway: Severe bilateral reticular nodular opacifications. There is interstitial th ickening throughout both lungs with worsening subpleural opacifications. Small but increasing LEFT pl eural effusion. There is also bilateral groundglass attenuation. Soft tissue nodule at the lingula no t changed measuring 3.1 x 2.8 cm. Pleura: Small but increasing LEFT pleural effusion. Heart and pericardium: Moderately enlarged heart. Prior CABG. Mediastinum and mariaelena: Calcified and noncalcified mediastinal and hilar lymphadenopathy. Increased sof t tissue at the hilar regions. May be adenopathy but cannot be further defined on this examination. L ymph nodes were noted on the prior study. More discrete lymph nodes are noted in the RIGHT paratrache al region with the largest measuring 1.7 cm in diameter. Not changed in size. Vessels: Moderate atherosclerosis aorta. Chest wall and lower neck: No soft tissue masses. Upper abdomen: Large hiatal hernia. Increased air within the visualized colon. No adrenal mass. Limit ed evaluation without IV contrast of the upper abdominal organs. Osseous structures: Mild increase in thoracic kyphosis and thoracic curvature. CT/CT chest wo con [id number] IMPRESSION: 1. Interval mild progression of interstitial lung disease which is probably stover perimposed edema or pneumonitis on fibrosis. 2. Small but slightly increased LEFT pleural effusion. 3. No change in the LEFT lingular soft tissue mass and adenopathy since 10/04/19 21. 4. Prior CABG.
[2020-10-11] MEDS: lactulose oral liq 20 gm/30 mL UDC 30 GM PO ×3 (16:49→23:05)
[2020-10-11 16:59] LABS: Glucose Point of Care 251 mg/dL (70-110)
[2020-10-11 20:16] LABS: Glucose Point of Care 215 mg/dL (70-110)
[2020-10-11] MEDS: trazodone 50 mg Tablet PO (20:58)
[2020-10-11] MEDS: insulin glargine 100 units/1 mL 15 UNIT SUBCUT (21:13)
[2020-10-12] VITALS (8 sets, daily range): BP systolic 129–146; BP diastolic 68–88; PULSE 75–120; RESP 13–28; TEMP 36.1–36.9; O2SAT 86–94
[2020-10-12 04:49] LABS: Basophils % 0.1 %; Eosinophils # 0.1 10^3/uL (0.0-0.8); Eosinophils % 0.4 %; Hematocrit 41.7 % (42.0-52.0); Hemoglobin 13.3 g/dL (11.7-16.6); Lymphocytes # 0.8 10^3/uL (0.8-4.8); Mean Corpuscular HGB Conc 31.9 g/dL (30.0-36.0); Mean Corpuscular Hemoglobin 26.9 pg (28.0-34.0); Mean Corpuscular Volume 84.2 fL (80-94); Mean Platelet Volume 10.2 fL (7.4-10.4); Monocytes # 1.4 10^3/uL (0.2-0.9); Monocytes % 8.7 %; Neutrophils # 13.75 10^3/uL (1.8-7.7); Neutrophils % 85.1 %; Nucleated Red Blood Cells % 0 %; Platelet Count 181 10^3/cmm (130-400); Red Blood Count 4.95 10^6/uL (4.1-5.3); Red Cell Distribution Width 14.4 % (12.1-15.1); White Blood Count 16.2 10^3/uL (4.0-10.0)
[2020-10-12 05:12] LABS: Anion Gap 13.9 (5-19); Blood Urea Nitrogen 31 mg/dL (8-23); Calcium 8.6 mg/dL (8.5-10.5); Carbon Dioxide 32 mmol/L (22-29); Chloride 89 mmol/L (98-107); Glucose 196 mg/dL (65-115); Magnesium 2.1 mg/dL (1.7-2.3); NT Pro B Type Natriuretic Pept 1716 pg/mL (0-450); Osmolality Calculated 286 mOsm/kg (285-295); Sodium 132 mmol/L (136-145)
[2020-10-12] MEDS: lactulose oral liq 20 gm/30 mL UDC 30 GM PO ×2 (05:18→11:28)
[2020-10-12 05:24] LABS: Potassium 2.9 mmol/L (3.5-5.1)
[2020-10-12] MEDS: metoprolol tartrate 1 mg/1 mL SDV 5 mL 5 MG IV ×2 (05:49→09:58)
[2020-10-12] MEDS: lidocaine 1% 5 ML in potassium chloride premix 100 ML 25 ML IV ×2 (06:19→11:02)
[2020-10-12 06:55] LABS: Glucose Point of Care 273 mg/dL (70-110)
--- NOTE | 2020-10-12 07:40 | XRR_ITS ---
PROCEDURE INFORMATION: Exam: XR Abdomen Exam date and time: 10/12/2020 7:48 AM Age: 85 years old Clinical indication: Abdominal pain; Generalized; Additional info: Abdominal pain follow up ileus TECHNIQUE: Imaging protocol: XR of the abdomen. Views: Frontal supine view of the abdomen. 1 View. COMPARISON: CR (ABDOMEN, ) 10/10/2020 3:57 PM FINDINGS: Gastrointestinal tract: Rather diffuse prominent gas distention of bowel within the included abdomen and pelvis limited for detailed bowel-gas pattern assessment by only supine images. Vasculature: Pelvic vascular calcifications. Bones/joints: Degenerative changes of both hips. Degenerative change of the spine. XR/XR abdomen 1V* [id number] IMPRESSION: [id number]-[id number]-mizbkr gas distention of bowel diffusely which is mildly progressive. Findings could reflect obstruction or ileus.
--- NOTE | 2020-10-12 07:51 | CT_ITS ---
WS: [id number] CT ABDOMEN AND PELVIS NONCONTRAST HISTORY: Abdominal pain TECHNIQUE: Imaging performed through the abdomen and pelvis. Coronal and sagittal reformats are submi tted. All CT scans at [facility] use at least one of these dose optimization techniques: automated exposure control; mA and/or kV adjustment per patient size (includes targeted exams where d ose is matched to clinical indication); or iterative reconstruction. DLP: 2052.17 mGy.cm COMPARISON: None available. Lower thorax: Small to moderate LEFT pleural effusion with compressive atelectasis. Again noted is a soft tissue mass at the lingula measuring 3.2 x 3.0 cm. Pulmonary fibrosis and pulmonary edema at the lung bases. Mild cardiomegaly. Large hiatal hernia. Liver: Normal size liver. No mass or bile duct dilatation. Gallbladder: Poorly visualized. Negative. Pancreas: Marked atrophy. Spleen: Normal. Adrenal glands: Normal. No mass. Right kidney: Vascular calcification. No obstruction. Mild atrophy. Left kidney: Low-attenuation nodule measuring 2.8 cm in the mid kidney is probably a cyst. No obstruc tion. Aorta: Extensive calcification within the aorta and mesenteric arteries. No free fluid, intraperitoneal air or significant lymphadenopathy. GI tract: Marked colonic distention with air and fluid. No focal change in caliber or mass. Abdominal wall: Negative. No hernia. Pelvis: Bowman catheter in a nondistended urinary bladder. No mass or fluid. Osseous structures: Unremarkable. CT/CT abdomen pelvis wo con [id number] IMPRESSION: 1. Small to moderate LEFT pleural effusion with atelectasis. 2. Interstitial edema at the lung bases. 3. 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 4. No free fluid or free air. 5. Intrathoracic stomach. 6. Unchanged lingular mass.
--- NOTE | 2020-10-12 07:51 | CT_ITS ---
WS: [id number] CT HEAD NONCONTRAST HISTORY: Syncope, Encephalopathy TECHNIQUE: Contiguous axial imaging performed through the brain in 2.5 mm imaging. Bone and soft tiss ue windows. Sagittal and coronal reformats reviewed. All CT scans at [facility] use at ast one of these dose optimization techniques: automated exposure control; mA and/or kV adjustment pe r patient size (includes targeted exams where dose is matched to clinical indication); or iterative r econstruction. DLP: 819.97 mGy.cm COMPARISON: 10/03/2020 There is significant artifact through the brain from the hearing implant. As compared to the prior st udy not significantly changed. Areas of decreased attenuation from chronic ischemic disease. Prior in farct in the RIGHT occipital lobe. Prior RIGHT frontal infarct. Moderate atrophy. Ventricles: Normal size with no hydrocephalus. Paranasal sinuses: As visualized are clear. Mastoid air cells: Postsurgical changes at the LEFT mastoid air cells. Calvarium and scalp: Skull is intact with no soft tissue edema or swelling. Extensive atherosclerosis intracranial carotid arteries. CT/CT head wo con* [id number] IMPRESSION: 1. Significant artifact from the patient's brain from the LEFT hearing aid imp lant. 2. 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 No acute h emorrhage or interval change identified.
[2020-10-12] MEDS: FUROsemide 10 mg/mL SDV 10mL 60 MG IVP ×2 (08:52→12:53)
--- NOTE | 2020-10-12 09:17 | PC.NURSE ---
upon bedside report patient was lethargic not able to follow any commands in audible and mumbled sounds coming from lips night nurse reports Dr. Fisher on unit just after assessment Dr fisher to place orders for CT and x-rays during CT scan patient was moved from bed to machine table patient became red and eyes rolled back in head; patient was imdeatly placed back on bed and sat up. patient recovered although would not respond in any way Dr. fisher notified and came to CT and instructed us to proceed with scans patient tolerated ok.
--- NOTE | 2020-10-12 09:37 | ECG_ITS ---
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 Measurements Intervals [facility] Rate: 106 P: LA: QRS: 30 QRSD: 133 T: 210 QT: 380 QTc: 507 Interpretive Statements ATRIAL FIBRILLATION WITH RAPID VENTRICULAR RESPONSE INTRAVENTRICULAR CONDUCTION DELAY [130+ ms QRS DURATION] POSSIBLE LEFT VENTRICULAR HYPERTROPHY [VOLTAGE CRITERIA PLUS LAE OR QRS WIDENING] Compared to ECG 10/10/2020 03:45:28 Sinus rhythm no longer present Ventricular premature complex(es) no longer present ST (T wave) deviation no longer present Electronically Signed On 10-12-2020 19:22:50 CDT by Los Guallpa M.D. [id number]
[2020-10-12 09:38] LABS: Procalcitonin 0.84 ng/mL (0-0.5)
--- NOTE | 2020-10-12 09:53 | XR_ITS ---
WS: [id number] PORTABLE CHEST HISTORY: NG tube placement COMPARISON: 10/12/2020 NG tube has been placed. Proximal port is at the GE junction. Recommend advancing the 10 cm. Bilateral interstitial thickening and a small LEFT pleural effusion. Prior CABG. No pneumothorax. Cardiac size: Mildly enlarged cardiac silhouette. Mediastinum/Aorta: Normal mediastinum. No osseous abnormality seen. Diffuse colonic distention with air. XR/XR chest 1V portable [id number] IMPRESSION: Recommend advancing nasogastric tube 10 cm.
--- NOTE | 2020-10-12 10:26 | PC.NURSE ---
patient broght back to room from CT family at bedside patients HR 120's DR fisher notified verbal instructions to give Amio bolus 150mg verbal order placed, aslo obtain EKG instructions to place NG tube Dr fisher at bedside to speak with family about placing the tube confirmation from family to place tube Dr fisher placed NG tube placement confirmed by nurse and Dr. fisher with air injection Dr. moeller also with verbal instructions to obtain chest xray to confirm placement of NG hooked to low intermittent suction patinet tolerated well INstructions to give metoprolol IVP via PRN order and hold amio bolus at this time HR after Metoprolol adminisration 98 afib noted PARAMETERS for IVP metoprolol verbal instructions to give for HR >110
--- NOTE | 2020-10-12 10:40 | PC.NURSE ---
spoke with Dr fisher about patient current medication and patient not alert enough to have taken PO this am instructions to give all that can be crushed through NG tube instructions to hold Imdur protonix flomax cardizem also notified of late administration ok to give now
[2020-10-12] MEDS: potassium chloride oral liq 20 mEq/15 mL UDC 80 MEQ PO (11:01)
[2020-10-12] MEDS: finasteride 5 mg Tablet PO (11:02)
[2020-10-12] MEDS: escitalopram 10 mg Tablet PO (11:02)
[2020-10-12] MEDS: gabapentin 300 mg Capsule 600 MG PO (11:03)
[2020-10-12] MEDS: atorvastatin 40 mg Tablet PO (11:03)
[2020-10-12] MEDS: apixaban 5 mg Tablet PO (11:03)
[2020-10-12 11:44] LABS: Glucose Point of Care 298 mg/dL (70-110)
--- NOTE | 2020-10-12 12:10 | PM.PN ---
Subjective Subjective: Interval history: Patient was seen and examined this morning.Had significant abdominal distention, resulting in a respiratory distress, also had significantly decreased mentation. 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 NG tube was placed, Fleet enema, as well as magnesium citrate, through NG tube was initiated, Patient had significant relief in the discomfort, with good 2 large bowel movements. Medications: Reviewed: Yes Vitals/I&O/Wt Last Vital Signs Temp 98.4 F 10/12/20 07:21 Pulse 116 H 10/12/20 07:54 Resp 20 H 10/12/20 07:54 BP 129/83 10/12/20 07:21 Pulse Ox 94 10/12/20 07:54 10/11/20 10/12/20 10/12/20 22:59 06:59 14:59 Intake Total 120 / 540 205 / 205 Output Total 800 / 800 100 / 900 350 / 350 Balance -680 / -260 -100 / -360 -145 / -145 Physical Exam HENMT: COMMON NORMALS: normocephalic and atraumatic HEAD & SCALP: normocephalic and atraumatic Chest: CHEST: Yes Symmetrical chest wall rise Resp: COMMON NORMALS: normal respiratory effort EFFORT & INSPECTION: Yes symmetric chest movement OTHER: Bilateral basal crackles present Cardio: COMMON NORMALS: regular rate, regular rhythm, S1 normal heart sound present, S2 normal heart sound present, No gallops present (Cardio), No murmurs present (Cardio), No rub (Cardio) and Peripheral pulses 2+ throughout RATE: regular rate RHYTHM: regular rhythm HEART SOUNDS: S1 normal heart sound present and S2 normal heart sound present PERIPHERAL PULSES: Peripheral pulses 2+ throughout GI: COMMON NORMALS: Normal to inspection, nondistended, normoactive bowel sounds present, Soft to palpation, non-tender, No hepatosplenomegaly present and no masses AUSCULTATION: Yes normoactive bowel sounds PALPATION: Yes Soft to palpation and Yes No hepatosplenomegaly present RECTAL EXAM: Yes deferred Extremity: COMMON NORMALS: no clubbing, cyanosis or edema and no pedal edema Urinary Catheter Management^: Bowman: Cath Placed During This Visit: yes, but has since been removed by the nurse Reason for Continuing Indwelling Catheter: Acute Urinary Retention or Obstruction Urinary Catheter Date of Insertion: 10/08/20 Urinary Catheter Time of Insertion: 13:36 Date Urinary Catheter Removed: 10/07/20 Time Urinary Catheter Discontinued: 15:07 Data : 10/12/20 04:13 10/12/20 04:13 Micro: Microbiology 10/06/20 13:00 Blood Culture - Final Blood NO GROWTH AFTER 5 DAYS 10/06/20 13:05 Blood Culture - Final Blood NO GROWTH AFTER 5 DAYS A&P Assessment and plan (1) Need for comfort care: As per Family Wishes.Patient has been made comfort Care. Comfort Care Protocol has been initiated. Status: Acute (2) Acute encephalopathy: Ac Metabolic Encephalopathy: Status: Acute (3) Pulmonary embolism: Right-sided PE Transitioned to Eliquis on 10/08, however noted to have hematuria therefore Eliquis was placed on hold till 10/10. Eliquis was resumed on 5 mg q12 h daily on 10/11 Status: Acute Qualifiers: Pulmonary embolism type: single subsegmental (without acute cor pulmonale) Qualified Code(s): I26.93 - Single subsegmental pulmonary embolism without acute cor pulmonale (4) Lung mass: CTA of the chest also mentions a lingular mass with hilar and mediastinal lymphadenopathy concerning for malignancy. Pulmonary consult appreciated Patient has received an empiric 6-day course of Zosyn to cover for the possibility of pneumonia including aspiration pneumonia and has also been diuresed aggressively during this admission. Repeat C.T Chest without contrast done on 10/11 has shown persistent unchanged Lt lingular soft tissue mass and adenopathy. follow up serial CT in 2 weeks as outpatient, if mass appears to be improving less likely to be malignancy. Unable to obtain prior imaging from [facility]. Empiric vancomycin was discontinued after MRSA PCR returned negative. Urine Legionella antigen negative. Haemophilus influenza antigen and originally reported positive from the urine, resolved thereafter corrected to be negative. Appreciate swallow evaluation, Diet changed to dysphagia 3 Patient has remained afebrile during the course of admission, pro-Miguel negative Continue supplemental oxygen to keep O2 sat greater than 92% Leukocytosis persisting at 13, however patient is clinically improving, oxygen requirement stable at 3 L/min, he remains afebrile and hemodynamically stable. Now also working with PT, chest pain is improved. monitor for interval development of any empyema. DuoNeb every 4 hours as needed Status: Acute (5) Hypoxia: Multifactorial related to pulmonary embolism, lung mass, pulmonary edema likely as a result of known history of CHF, unknown last ejection fraction. Gr 2 diastolic dysfucntion on echocardiogram. 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 (7) Hypertension: currently well controlled Status: Acute Qualifiers: Hypertension type: essential hypertension Qualified Code(s): I10 - Essential (primary) hypertension (8) Dementia: advanced Status: Acute Qualifiers: Dementia type: vascular dementia Dementia behavioral disturbance: without behavioral disturbance Qualified Code(s): F01.50 - Vascular dementia without behavioral disturbance (9) CHF (congestive heart failure): Acute on chronic diastolic CHF exacerbation On lasix 60mg po BID, continues to diurese well, net -7.9 L since admission renal function stable Noted to be developing metabolic alkalosis on labs, slightly increased edema after switching IV to p.o. Lasix. We will give him additional dose of Diamox today, reassess volume status tomorrow morning. Status: Acute Qualifiers: Heart failure type: diastolic Heart failure chronicity: acute on chronic Qualified Code(s): I50.33 - Acute on chronic diastolic (congestive) heart failure (10) Atrial fibrillation with RVR: unclear chronicity Currently rate controlled with amiodarone 400mg BID and cardizem, increased dose of Cardizem to 300 mg extended release daily as still with intermittent runs of A. fib. already on a/c for PE, on hold today due to noted hematuria Status: Acute (11) Ileus: CT abdomen and pelvis without contrast was done: Findings are suggestive of, [place] syndrome/adynamic ileus, with significant constipatio. NG tube was placed, Fleet enema, as well as magnesium citrate, through NG tube was initiated, Patient had significant relief in the discomfort, with good 2 large bowel movements. Status: Acute Additional A&P Information DVT ppx: on eliquis DNR/DNI Dispo: significant deconditioning, restricted mobility, will benefit from skilled therapy Attestations Medical Necessity Statement*: Patient has been made comfort care.Will attempt for discharge to custodial with comfort care. Coding Level of Care Code Acute Paper Counter for Chg Fwd Diagnoses Need for comfort care Acute encephalopathy G93.40 Pulmonary embolism I26.93 Pulmonary embolism type: single subsegmental (without acute cor pulmonale) Lung mass R91.8 Hypoxia R09.02 Diabetes E11.65; Z79.4 Diabetes mellitus type: type 2 Diabetes mellitus alf insulin use: with escort service attendant use Diabetes mellitus complication status: with hyperglycemia Hypertension I10 Hypertension type: essential hypertension Dementia F01.50 Dementia type: vascular dementia Dementia behavioral disturbance: without behavioral disturbance CHF (congestive heart failure) I50.33 Heart failure type: diastolic Heart failure chronicity: acute on chronic Atrial fibrillation with RVR I48.91 Ileus K56.7
[2020-10-12] MEDS: Fleet Enema 133 mL Enema PR (12:11)
[2020-10-12] MEDS: magnesium citrate Btl 296 mL NG-TUBE (12:11)
--- NOTE | 2020-10-12 12:30 | PC.NURSE ---
fleets enema and magnesium citrate administered at this time; patient tolerated well patient sat back up after rolling for administrations of medication
--- NOTE | 2020-10-12 12:40 | NUR.SHIFT ---
upon entering room to check on patient; patient was found to have crackles that were audible upon entering patient breathing was labored with use of abdominal muscles Call placed to Dr fisher with concerns telephone instructions to give IVP lasix 60mg upon administration of IVP lasix patient HR decreased from 107-110 to 86 abruptly patient remains unresponsive eyes are open family at bedside Dr fisher called to bedside to assess situation Dr gary call dr cartwright Family asking about this nurse about comfort care and what it entails this nurse explained comfort care to the best of her knowledge Dr fisher had spoken with family this am after CT scans family was in agreement to places NG tube to aide in making patient more comfortable
--- NOTE | 2020-10-12 13:14 | PC.NURSE ---
verbal orders for feets enema Q4H and magnesium citrate NG Q4h
--- NOTE | 2020-10-12 13:41 | PC.SOCIAL ---
*IMM UPDATE* Gave patient's son IMM update at bedside. Provided copy of page 2 of IMM. 10/12/20 @ 0954. Initialed, dated, timed and placed in chart.
[2020-10-12] MEDS: scopolamine 1.5 Patch 1 PATCH TRANSDERMA (14:24)
--- NOTE | 2020-10-12 14:30 | PC.NURSE ---
patient had copious amount of BM and passed lots of gas
--- NOTE | 2020-10-12 16:23 | PC.NURSE ---
family at bedside wanting the patient to be placed on comfort care Dr fisher brought to bedside and comfort care confirmed with family NG tube removed intact patient tolerated well
[2020-10-12] MEDS: morphine 4 mg/mL SDV 1 mL 2 MG IVP (19:56)
[2020-10-13] MEDS: morphine 4 mg/mL SDV 1 mL 2 MG IVP ×4 (01:28→16:40)
[2020-10-13] MEDS: LORazepam 2 mg/mL INJ 1 mL 1 MG IVP (08:16)
--- NOTE | 2020-10-13 13:18 | PM.PN ---
Subjective Medications: Reviewed: Yes Vitals/I&O/Wt Last Vital Signs Temp 96.9 F L 10/12/20 15:04 Pulse 120 H 10/12/20 19:35 Resp 22 H 10/12/20 19:35 BP 134/74 10/12/20 15:04 Pulse Ox 93 10/12/20 19:35 10/12/20 10/13/20 10/13/20 22:59 06:59 14:59 Intake Total 105 / 310 0 / 0 Output Total 800 / 1150 Balance 105 / -40 -800 / -840 0 / 0 Physical Exam HENMT: COMMON NORMALS: normocephalic and atraumatic HEAD & SCALP: normocephalic and atraumatic Chest: CHEST: Yes Symmetrical chest wall rise Resp: COMMON NORMALS: normal respiratory effort EFFORT & INSPECTION: Yes symmetric chest movement OTHER: Bilateral basal crackles present Cardio: COMMON NORMALS: regular rate, regular rhythm, S1 normal heart sound present, S2 normal heart sound present, No gallops present (Cardio), No murmurs present (Cardio), No rub (Cardio) and Peripheral pulses 2+ throughout RATE: regular rate RHYTHM: regular rhythm HEART SOUNDS: S1 normal heart sound present and S2 normal heart sound present PERIPHERAL PULSES: Peripheral pulses 2+ throughout GI: COMMON NORMALS: Normal to inspection, nondistended, normoactive bowel sounds present, Soft to palpation, non-tender, No hepatosplenomegaly present and no masses AUSCULTATION: Yes normoactive bowel sounds PALPATION: Yes Soft to palpation and Yes No hepatosplenomegaly present RECTAL EXAM: Yes deferred Extremity: COMMON NORMALS: no clubbing, cyanosis or edema and no pedal edema Urinary Catheter Management^: Bowman: Cath Placed During This Visit: yes, but has since been removed by the nurse Reason for Continuing Indwelling Catheter: Hospice/Comfort/Palliative Care Urinary Catheter Date of Insertion: 10/08/20 Urinary Catheter Time of Insertion: 13:36 Date Urinary Catheter Removed: 10/07/20 Time Urinary Catheter Discontinued: 15:07 Data : 10/12/20 04:13 10/12/20 04:13 A&P Assessment and plan (1) Need for comfort care: As per Family Wishes.Patient has been made comfort Care. Comfort Care Protocol has been initiated. Status: Acute (2) Acute encephalopathy: Ac Metabolic Encephalopathy: Status: Acute (3) Pulmonary embolism: Right-sided PE Transitioned to Eliquis on 10/08, however noted to have hematuria therefore Eliquis was placed on hold till 10/10. Eliquis was resumed on 5 mg q12 h daily on 10/11 Status: Acute Qualifiers: Pulmonary embolism type: single subsegmental (without acute cor pulmonale) Qualified Code(s): I26.93 - Single subsegmental pulmonary embolism without acute cor pulmonale (4) Lung mass: CTA of the chest also mentions a lingular mass with hilar and mediastinal lymphadenopathy concerning for malignancy. Pulmonary consult appreciated Patient has received an empiric 6-day course of Zosyn to cover for the possibility of pneumonia including aspiration pneumonia and has also been diuresed aggressively during this admission. Repeat C.T Chest without contrast done on 10/11 has shown persistent unchanged Lt lingular soft tissue mass and adenopathy. follow up serial CT in 2 weeks as outpatient, if mass appears to be improving less likely to be malignancy. Unable to obtain prior imaging from [facility]. Empiric vancomycin was discontinued after MRSA PCR returned negative. Urine Legionella antigen negative. Haemophilus influenza antigen and originally reported positive from the urine, resolved thereafter corrected to be negative. Appreciate swallow evaluation, Diet changed to dysphagia 3 Patient has remained afebrile during the course of admission, pro-Miguel negative Continue supplemental oxygen to keep O2 sat greater than 92% Leukocytosis persisting at 13, however patient is clinically improving, oxygen requirement stable at 3 L/min, he remains afebrile and hemodynamically stable. Now also working with PT, chest pain is improved. monitor for interval development of any empyema. DuoNeb every 4 hours as needed Status: Acute (5) Hypoxia: Multifactorial related to pulmonary embolism, lung mass, pulmonary edema likely as a result of known history of CHF, unknown last ejection fraction. Gr 2 diastolic dysfucntion on echocardiogram. 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 (7) Hypertension: currently well controlled Status: Acute Qualifiers: Hypertension type: essential hypertension Qualified Code(s): I10 - Essential (primary) hypertension (8) Dementia: advanced Status: Acute Qualifiers: Dementia type: vascular dementia Dementia behavioral disturbance: without behavioral disturbance Qualified Code(s): F01.50 - Vascular dementia without behavioral disturbance (9) CHF (congestive heart failure): Acute on chronic diastolic CHF exacerbation On lasix 60mg po BID, continues to diurese well, net -7.9 L since admission renal function stable Noted to be developing metabolic alkalosis on labs, slightly increased edema after switching IV to p.o. Lasix. We will give him additional dose of Diamox today, reassess volume status tomorrow morning. Status: Acute Qualifiers: Heart failure type: diastolic Heart failure chronicity: acute on chronic Qualified Code(s): I50.33 - Acute on chronic diastolic (congestive) heart failure (10) Atrial fibrillation with RVR: unclear chronicity Currently rate controlled with amiodarone 400mg BID and cardizem, increased dose of Cardizem to 300 mg extended release daily as still with intermittent runs of A. fib. already on a/c for PE, on hold today due to noted hematuria Status: Acute (11) Ileus: CT abdomen and pelvis without contrast was done: Findings are suggestive of, [place] syndrome/adynamic ileus, with significant constipatio. NG tube was placed, Fleet enema, as well as magnesium citrate, through NG tube was initiated, Patient had significant relief in the discomfort, with good 2 large bowel movements. 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
--- NOTE | 2020-10-13 18:32 | P.DES_ITS ---
Discharge Providers DDS Date of Admission: 10/03/20 10:48 Date Summary Completed: 10/20/20 Attending Provider at Admission: Kyara Sepulveda MD Time of : 18:04 Attending Provider at Discharge: Jorge Lucero MD Primary Care Provider: Haley Marmolejo MD DS Diagnoses Hospital Diagnoses (1) Need for comfort care: (2) Acute encephalopathy: (3) Pulmonary embolism: Qualifiers: Pulmonary embolism type: single subsegmental (without acute cor pulmonale) Qualified Code(s): I26.93 - Single subsegmental pulmonary embolism without acute cor pulmonale (4) Lung mass: (5) Hypoxia: (6) Diabetes: Qualifiers: Diabetes mellitus complication status: with hyperglycemia 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: with 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 owner operator truck driver use Diabetes mellitus type: type 2 Qualified Code(s): E11.65 - Type 2 diabetes mellitus with hyperglycemia; Z79.4 - intermodal dispatcher (current) use of insulin (7) Hypertension: Qualifiers: Hypertension type: essential hypertension Qualified Code(s): I10 - Essential (primary) hypertension (8) Dementia: Qualifiers: Dementia behavioral disturbance: without behavioral disturbance Dementia type: vascular dementia Qualified Code(s): F01.50 - Vascular dementia without behavioral disturbance (9) CHF (congestive heart failure): Qualifiers: Heart failure chronicity: acute on chronic Heart failure type: diastolic Qualified Code(s): I50.33 - Acute on chronic diastolic (congestive) heart failure (10) Atrial fibrillation with RVR: (11) Ileus: Reason for Visit Reason for Visit: syncope Summary Date and Time of Date of : 10/13/20 Time of : 18:04 Summary Summary: Michael Meyers is a 85 year old male with a past medical history, of Depression,Diabetes,DVT (deep venous thrombosis), GERD (gastroesophageal reflux disease) History of CVA (cerebrovascular accident)Hyperlipidemia Hypertension recently admitted at [facility] where he went with chest pain, was diagnosed with acute on chronic heart failure, atypical chest pain, Imdur was added to his existing medication regimen and he was discharged. Since discharge home approximately 1 week ago patient continued to have chest pain with no sign ificant relief. He has also been complaining of increasing shortness of breath, becoming increasingly weaker at home has sustained 2 falls. At 4:20 AM this morning, he was attempting to walk to the bathroom with his walker when he passed out as described by his . She found him slumped over in the bathroom. He was brought into the ER. Diagnostics here revealed CTA of the chest with PE, lingular mass and bilateral hilar and mediastinal lymphadenopathy concerning for maligancy. CXR showed possibility of multifocal pneumonia vs pulmonary edema. He was hypoglycemic upon admission, blood sugar in the 60s, has had poor p.o. intake over the last few days.He was admitted for the management of Acute Pulmonary embolism, Ac hypoxic r/f : Multifactorial related to pulmonary embolism, lung mass, Decompensated HFpEF, PNA. For his Acute P/E he was kept on therapeutic Anticoagulation, was was transiently held due to hematuria but was later resumed as the hematuria resolved and was monitored closely.foe his Pneumonia he was kept on broad spectrum ABxs. Urine Legionella antigen negative. Haemophilus influenza antigen and originally reported positive from the urine, resolved thereafter corrected to be negative. Follow up C.T Chest without contrast C.T done on 10/11 has shown persistent unchanged Lt lingular soft tissue mass and adenopathy. Interval mild progression of interstitial lung disease which is probably superimposed edema or pneumonitis on fibrosis.Small but slightly increased LEFT pleural effusion.Patient was continued on Broad spectrum abxs,vancomycin was discontinued as the MRSA PCR was negative.Due to pesristent lt lingular soft tissue mass on repeat c.t chest, the plan to do diagnostic as well as therapeutic thoracantesis was discussed with the family,thinking the possibility of malignant pleural effusion,family was of the opinion that since in the past the patient has clearly expressed his desire not for any active intervention in case of suspected malignancy ( surgery,chemo,radiation),it was not pursed.Plan was there to do repeat C.T chest in few weeks if needed,and pulmonary medicine follow up as outpatient.Pulmonary medicine consult was done when the patient was in house and they agreed with the plan to 1st consider pneumonia and continue with appropaite abxs with follow uo C.T chest. for his decompensated HFpEF he was aggressively diursesed,2D Echo done during this hospital stay LV systolic function is normal with EF of 55-60% Grade 2 diastolic dysfunction Moderate mitral annular calcification. 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 Areas of decreased attenuation from chronic ischemic disease. Prior infarct in the RIGHT occipital lobe. Prior RIGHT frontal infarct.Moderate atrophy.Family was seriously contemplating comfort care measures for the last few days prior to the date of given multiple comorbid conditions and the possibility of poor fci outcome and poor quality of life and the prior patient clear desire to be not placed on any life prolonging measures.Patient was placed on comfort care medications on 10/12/2020.Patient on 10/13/2020,at 18:04 pm,family was present at the bedside. 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 [facility] Fwd Diagnoses Need for comfort care Acute encephalopathy G93.40 Pulmonary embolism I26.93 Pulmonary embolism type: single subsegmental (without acute cor pulmonale) Lung mass R91.8 Hypoxia R09.02 Diabetes E11.65; Z79.4 Diabetes mellitus complication status: with hyperglycemia Diabetes mellitus fci insulin use: with fci use Diabetes mellitus type: type 2 Hypertension I10 Hypertension type: essential hypertension Dementia F01.50 Dementia behavioral disturbance: without behavioral disturbance Dementia type: vascular dementia CHF (congestive heart failure) I50.33 Heart failure chronicity: acute on chronic Heart failure type: diastolic Atrial fibrillation with RVR I48.91 Ileus K56.7
--- NOTE | 2020-10-13 18:39 | PC.NURSE ---
home notified of patient's . Patient's family member's chose [facility].
== END 2020-10-13 19:45 | disposition expired | DRG 175 ==
LOC: ER 06:01 → MEDSURG 11:05 → CSU 10-05 23:08 → ER IP 10-05 23:08 → CSU 10-05 23:08 → MEDSURG 10-12 19:16
PROVIDERS: Emergency Medicine; Internal Medicine; Admitting Provider Student in an Organized Health Care Education/Training Program; Emergency Provider Emergency Medicine; PCP Family Medicine; Visit Provider Internal Medicine
DX: I26.93 Single subsegmental thrombotic pulmonary embolism without acute cor pulmonale (principal); G93.41 Metabolic encephalopathy; I50.33 Acute on chronic diastolic (congestive) heart failure; J18.9 Pneumonia, unspecified organism; J69.0 Pneumonitis due to inhalation of food and vomit; I69.351 Hemiplegia and hemiparesis following cerebral infarction affecting right dominant side; K56.7 Ileus, unspecified; I48.91 Unspecified atrial fibrillation; I69.318 Other symptoms and signs involving cognitive functions following cerebral infarction; I11.0 Hypertensive heart disease with heart failure; I25.10 Atherosclerotic heart disease of native coronary artery without angina pectoris; R59.0 Localized enlarged lymph nodes; R91.8 Other nonspecific abnormal finding of lung field; E11.649 Type 2 diabetes mellitus with hypoglycemia without coma; E11.65 Type 2 diabetes mellitus with hyperglycemia; F01.50 Vascular dementia, unspecified severity, without behavioral disturbance, psychotic disturbance, mood disturbance, and anxiety; K44.9 Diaphragmatic hernia without obstruction or gangrene; E78.5 Hyperlipidemia, unspecified; F32.9 Major depressive disorder, single episode, unspecified; K21.9 Gastro-esophageal reflux disease without esophagitis; H91.90 Unspecified hearing loss, unspecified ear; R33.9 Retention of urine, unspecified; R31.9 Hematuria, unspecified; Z86.718 Personal history of other venous thrombosis and embolism; Z79.02 Long term (current) use of antithrombotics/antiplatelets; Z79.82 Long term (current) use of aspirin; Z79.4 Long term (current) use of insulin; Z95.1 Presence of aortocoronary bypass graft; Z82.49 Family history of ischemic heart disease and other diseases of the circulatory system; Z87.891 Personal history of nicotine dependence; Z74.09 Other reduced mobility; Z66 Do not resuscitate
CPT/HCPCS: 36415; 36416; 36600; 51702; 51798; 70450; 71045; 71250; 71275; 74018; 74176; 80048; 80051; 80053; 81003; 82330; 82550; 82805; 82962; 83605; 83735; 83880; 84145; 84484; 85025; 85049; 85610; 85730; 86403; 87040; 87426; 87449; 87641; 92523; 92526; 92610; 93005; 93306; 93970; 94640; 94664; 96365; 96366; 96372; 97110; 97116; 97161; 97530; 99291; J0282; J0743; J1170; J1644; J1650; J1815 ×2; J1940; J2060; J2270; J2543; J3370; J3480; J3490; J3535; J7060; Q9967